=== PATIENT | female | born 1955 | race Caucasian/White ===

== ENCOUNTER 2023-02-04 16:11 | Outpatient (OUT) | payer OTHER, SELFPAY ==
--- NOTE | 2023-02-04 | XR_ITS ---
The [address] [address] Patient Name: MIRIAM HUBER MRN: [id number] date: 1955 Sex: F Assigned Patient Location: [facility] Current Patient Location: [facility] Accession/Order Number: [id number] Exam Date: 02/04/2023 16:35 Report Date: 02/04/2023 23:20 At the request of: TEENA CHILDS Procedure: XR ribs RT 2V EXAM: XR ribs RT 2V HISTORY: ro7.89 chest wall pain COMPARISON: None. TECHNIQUE: 6 view study FINDINGS: Overall bony architecture is normal. Multilevel thoracic spondylosis is noted, commensurate with age. XR/XR ribs RT 2V IMPRESSION: No acute right rib abnormality is identified. Electronically authenticated by: Laura DOW Date: 02/04/2023 23:20
== END 2023-02-04 16:12 | disposition home or self-care (01) ==
LOC: RAD 16:12
PROVIDERS: PCP Family Medicine; Visit Provider Family Medicine
DX: R07.89 Other chest pain (principal)
CPT/HCPCS: 71100

== ENCOUNTER 2024-06-15 12:50 | Outpatient (OUT) | payer MEDICARE, SELFPAY ==
--- NOTE | 2024-06-15 | XR_ITS ---
The [address] [address] Patient Name: MIRIAM HUBER MRN: [id number] date: 1955 Sex: F Assigned Patient Location: [facility] Current Patient Location: Accession/Order Number: [id number] Exam Date: 06/15/2024 13:00 Report Date: 06/17/2024 05:05 At the request of: TEENA CHILDS Procedure: XR cervical spine 5V EXAMINATION: XR cervical spine 5V HISTORY: Chronic Neck Pain COMPARISON: No relevant comparison available. FINDINGS: BONES: No fracture, spondylolisthesis, or bone lesion. Mild straightening of the normal lordotic curvature. Multilevel mild degenerative facet arthropathy. DISC SPACES: Mild narrowing C4-C5, C5-C6, C6-C7. PARASPINOUS: Negative. No paraspinous abnormality is seen. OTHER: Negative. XR/XR cervical spine 5V IMPRESSION: 1. Mild-moderate degenerative changes of cervical spine. Electronically authenticated by: FROYLAN SMITH Date: 06/17/2024 05:05
== END 2024-06-15 12:51 | disposition home or self-care (01) ==
LOC: RAD 12:54
PROVIDERS: PCP Family Medicine; Visit Provider Family Medicine
DX: M54.2 Cervicalgia (principal); G89.29 Other chronic pain
CPT/HCPCS: 72050

== ENCOUNTER 2024-08-30 14:54 | Outpatient (OUT) | payer MEDICARE, OTHER, SELFPAY ==
--- NOTE | 2024-08-30 14:57 | CA_ITS ---
Patient Name: MIRIAM HUBER MR#: [id number] : 1955 Exam Date: 08/30/2024 Ordering Doctor: DR. HARVEY LÓPEZ M.D. ECHOCARDIOGRAM REPORT PROCEDURE: CA ECHO DOPPLER COMPLETE INDICATIONS: Mitral valve regurgitation COMPARISON: None. DESCRIPTION: COMPLETE ECHOCARDIOGRAM Real-time transthoracic echocardiography with 2D, M-mode, spectral and color flow Doppler performed. QUALITY: Technical quality was good. LEFT VENTRICLE: Normal chamber size. Mild concentric left ventricular hypertrophy. Global left ventricular systolic function is normal. LV EF: Estimated left ventricular ejection fraction is 60-65 %. DIASTOLIC: Diastolic function is indeterminate. ATRIAL SEPTUM: LEFT ATRIUM: Mild dilatation. RIGHT ATRIUM: Normal chamber size. RIGHT VENTRICLE: Normal chamber size. Normal right ventricular systolic function. TRICUSPID VALVE: Normal mobility and thickness. No stenosis with mild regurgitation. No evidence of pulmonary hypertension. RVSP 32 mmHg MITRAL VALVE: Normal mobility and thickness. No evidence of mitral valve stenosis. There is no mitral annular calcification. Trivial mitral regurgitation. AORTIC VALVE: Normal trileaflet appearance. No visible sclerosis. Normal leaflet mobility. No evidence of aortic valve stenosis. No aortic regurgitation. AORTIC ROOT: Normal diameter and appearance. PULMONIC VALVE: Normal thickness and mobility. No stenosis. Trivial regurgitation. PERICARDIUM: No evidence of pericardial effusion. IVC: Collapses with inspirations. Normal size. PLEURA: CONCLUSION: 1. Mild concentric left ventricular hypertrophy with normal systolic function. Estimated LVEF is 60 to 65%. 2. Normal right ventricular size and systolic function. 3. Mild left atrial dilatation. 4. Mild tricuspid regurgitation. 5. Trivial mitral regurgitation. 6. Normal right-sided pressures. Adult Echocardiography Procedure Report Left Ventricle LVEDD (3.7 - 5.6 cm): 3.81 cm LVESD (2.2 - 4.0 cm): 2.60 cm LVIVS thickness (0.6 - 1.2 cm): 1.17 cm LVPW thickness (0.5 - 1.0 cm): 1.16 cm e': 0.08 m/s E - e': 8.68 LVOT Max Gradient: 4.66 mm[Hg] LVOT Area (cm2): 1.08 m/s Peak Velocity (LVOT): 1.08 m/s Mean Velocity (LVOT): 0.73 m/s LVOT Diameter 1.88 cm Left Atrium LA Volume Index (2D A2C): 26.07 ml/m2 Left Atrium Systolic Dimension: 4.87 cm Mitral Valve MV E to A Ratio: 0.82 Mitral Valve A-Wave Peak Velocity: 0.83 m/s Mitral Valve E-Wave Peak Velocity: 0.68 m/s Right Ventricle RV Internal Diastolic Dimension: 2.91 cm Aorta AO Root Diam: 2.90 cm Ascending Ao Diam: 3.10 cm Aortic Valve AoV Area (Peak Jaime): 2.26 cm2, 2.26 cm2 AoV Area (VTI): 2.31 cm2, 2.31 cm2 Peak Velocity(Antegrade Flow): 1.32 m/s Peak Gradient(Antegrade Flow): 7.01 mm[Hg] Mean Velocity(Antegrade Flow): 0.88 m/s Mean Gradient(Antegrade Flow): 3.61 mm[Hg] Velocity Time Integral: 31.15 cm Tricuspid Valve Peak Velocity (Regurgitant Flow): 2.42 m/s, 2.59 m/s, 2.69 m/s Pulmonic Valve Mean Gradient: 3.15 mm[Hg], 2.91 mm[Hg] Mean Velocity: 0.83 m/s, 0.80 m/s Peak Velocity: 1.16 m/s Peak Gradient: 5.42 mm[Hg], 5.42 mm[Hg] Right Atrium Right Atrium Systolic Pressure: 32.82 ml, 32.82 ml Dictated by: Lake Ross M.D. on 08/30/2024 at 17:52 Approved by: Lake Ross M.D. on 08/30/2024 at 17:55
== END 2024-08-30 14:55 | disposition home or self-care (01) ==
LOC: CARD 14:55
PROVIDERS: PCP Family Medicine; Visit Provider Internal Medicine Cardiovascular Disease
DX: I34.0 Nonrheumatic mitral (valve) insufficiency (principal)
CPT/HCPCS: 93306

== ENCOUNTER 2024-09-14 10:15 | Outpatient (OUT) | payer MEDICARE, OTHER, SELFPAY ==
--- OUTSIDE RECORDS SUMMARY | 2024-09-14 10:34 | XMS_ITS | CCD ---
Author Organization [facility] Care Team Providers Care Computer Builder Name Role Phone Ninfa Childs Primary Care Provider Ninfa Childs Attending Provider NINFA CHILDS Primary Care Physician MD Ninfa Childs Primary Care Provider [phone] MD Ninfa Childs Referring Provider Self, Referral Attending Provider Unavailable SALAM, Infante Attending Unavailable SALAM, Infante Referring Unavailable SALAM, Infante Admitting Unavailable SALAM, Naresh Attending Unavailable SALAM, Naresh Referring Unavailable SALAM, Infante Admitting Unavailable Kayli Miller Attending Unavailable SALAM, Infante Attending Unavailable SALAM, Infante Referring Unavailable SALAM, Infante Admitting Unavailable Ninfa Childs Unavailable REQUEST, NONE LISTED Attending Unavaila ble REQUEST, NONE LISTED Consulting Unavaila ble NAZ, DR NINFA Lugo Primary Care Unavailable REQUEST, NONE LISTED Admitting Unavaila ble NAZ, DR NINFA Lugo Primary Care Unavailable Marlon Aguilar Consulting Unavailable NAZ, DR NINFA Lugo Admitting Unavailable CHILDS, DR NINFA Lugo Attending Unavailable CHILDS, DR NINFA Lugo Consulting Unavailable CHILDS, DR NINFA Lugo Primary Care Unavailable ANGÉLICA SANEDRS Admitting Unavailable ANGÉLICA SANDERS Attending Unavailable ANGÉLICA SANDERS Consulting Unavailable MD Ninfa Childs Primary Care Provider MD Ninfa Childs Attending Provider [phone] Bharat Singleton Unavailable JAE BLANCAS Attending Unavailable NINFA CHILDS Referring Unavailable MARIE GONZALEZ Attending Unavailable MARIE GONZALEZ Referring Unavailable Ninfa Childs Primary Care Unavailable Self, Referral Attending Unavailable Self, Referral Admitting Unavailable MD Ninfa Childs Primary Care Provider Self, Referral Attending Provider Unavailable HARVEY LÓPEZ Attending Unavailable Unavailable Unavailable Unavailable Allergies Allergy Classification Reported Allergen(s) Allergy Type Date of Onset Reaction(s) Facility (7 sources) Topical Dispenser *MEDICAL DEVICES AND SUPPLIES* Propensity to adverse reactions 3 Unknown [facility] [facility] Other (7 sources) Allergies Reconciled Propensity to adverse reactions Unknown [employer] Other (7 sources) Ibuprofen & Diet Manage Prod *ANALGESICS - ANTI-IN Propensity to adverse reactions 3 Unknown [employer] Other (7 sources) patient allergy list reviewed by nurse or physicia Propensity to adverse reactions 3 Comment:Done [employer] Other (2 sources) Ibuprofen & Diet Manage Prod * Allergy to substance 4 [facility] Comment on above: Free Text Allergy: I buprofen & Diet Manage Prod *ANALGESICS - ANTI-IN; Onset Date: 05/16/2013 (2 sources) Topical Dispenser *MEDICAL DEV Allergy to substance 4 [facility] Comment on above: Free Text Allergy: T opical Dispenser *MEDICAL DEVICES AND SUPPLIES*; Onset Date: 05/16/2013 Medications Current Medications Medication Drug Class(es) Dates Sig (Normalized) Sig (Original) ascorbic acid 1000 mg oral tablet (5 sources) Vitamin C Start: 07-08-2015 take 1000 mg by mouth once daily Vitamin C 1,000 mg, Oral, Daily, Refills(s) 0, Prophylaxis Start Date: 07/08/15 Status: Ordered Aspir-81 81 MG (10 sources) take 1 tablet by mouth once daily Aspir-81 81 MG 1 tablet Orally Once a day Active aspirin 81 mg delayed release oral tablet (7 sources) Platelet Aggregation Inhibitor, Nonsteroidal Anti-inflammatory Drug Start: 10-12-2023 take 1 tablet by mouth once daily Aspirin 81 mg tablet,delayed release (DR/EC) Active 1 TAB PO Daily October 11, 2023 11:00pm [employer] tablet Orally Once a day; Note: Source Status: Taking; Provider: Naz Ocasio ( ) Start: 07-08-2015 take 81 mg by mouth once daily aspirin 81 mg, Oral, Daily, Refills(s) 0, Blood Thinner Start Date: 07/08/15 Status: Ordered azithromycin 250 mg oral tablet (2 sources) Macrolide Antimicrobial Start: 04-26-2023 Azithromycin 250 MG as directed Orally 2 tabs po today, then 1 tab daily x 4 more days for 5 Apr, Active Biotin (5 sources) Start: 07-08-2015 take 1000 ug by mouth once daily biotin 1,000 mcg, Oral, Daily, Refills(s) 0, Prophylaxis Start Date: 07/08/15 Status: Ordered Start: 07-08-2015 biotin See Ins tructions, Refills(s) 0, Prophylaxis Start Date: 07/08/15 Status: Ordered carvedilol 3.125 mg oral tablet (14 sources) alpha-Adrenergic Alyse, beta-Adrenergic Alyse Start: 10-12-2023 take 1 tablet by mouth twice daily at mealtime Carvedilol 3.125 mg tablet Active 1 TAB PO Twice daily October 11, 2023 11:00pm [employer] tablet with food Orally Twice a day; Note: Source Status: Taking; Provider: Naz Ocasio ( ) Start: 10-12-2023 take 1 tablet by mykel th twice daily at mealtime Carvedilol Active 1 TAB PO Twice daily October 12, 2023 12:00am [employer] tablet with food Orally Twice a day; Note: Source Status: Taking; Provider: Naz Ocasio ( ) Start: 06-10-2022 take 1 tablet by mykel th twice daily carvedilol 3.125 mg Tab 3.125 mg = 1 tab(s), Oral, BID, Refills(s) 0 Start Date: 06/10/22 Status: Ordered take 1 tablet by mykel th every twelve hours Coreg 3.125 MG 1 tablet with food Orally Twice a day Active cinnamon preparation 500 mg oral tablet (5 sources) Non-Standardized Food Allergenic Extract Start: 07-08-2015 take 500 mg by mouth twice daily Cinnamon 500 mg, Oral, BID, Refills(s) 0, Prophylaxis Start Date: 07/08/15 Status: Ordered clopidogrel 75 mg oral tablet (12 sources) P2Y12 Platelet Inhibitor Start: 07-08-2015 take 75 mg by mouth once daily Plavix 75 mg, Oral, Daily, Refills(s) 0, Blood Thinner Start Date: 07/08/15 Status: Ordered Co Q-10 (5 sources) Start: 07-08-2015 take 100 mg by mouth once daily Co Q-10 100 mg, Oral, Daily, Refills(s) 0, Prophylaxis Start Date: 07/08/15 Status: Ordered Start: 07-08-2015 Co Q-10 See In structions, Refills(s) 0, Prophylaxis Start Date: 07/08/15 Status: Ordered Co Q10 Maximum Strength (10 sources) Co Q10 Maximum Strength Active glucosamine 500 mg oral tablet (3 sources) Start: 5 take 500 mg by mouth once daily glucosamine 500 mg, Oral, Daily, Refills(s) 0, Prophylaxis Start Date: 07/08/15 Status: Ordered 24 hr isosorbide mononitrate 30 mg extended release oral tablet (3 sources) Nitrate Vasodilator Start: 5 take 30 mg by mouth once daily in the morning Imdur 30 mg, Oral, qAM, Refills(s) 0, Chest pain Start Date: 07/08/15 Status: Ordered lisinopril 5 mg oral tablet (14 sources) Angiotensin Converting Enzyme Inhibitor Start: take 1 tablet by mouth once daily Lisinopril 5 mg tablet Active 1 TAB PO Daily October 11, 2023 11:00pm [employer] tablet Orally Once a day; Note: Source Status: Taking; Provider: Naz Ocasio ( ) Start: 06-10-2022 lisinopril Ora l, Daily, Refills(s) 0 Start Date: 06/10/22 Status: Ordered take 1 tablet by mykel th every twenty-four hours Lisinopril 5 MG 1 tablet Orally Once a day Active loratadine 10 mg oral tablet (11 sources) Start: 10-12-2023 take 1 tablet by mouth once daily Loratadine 10 mg tablet Active 1 TAB PO Daily October 11, 2023 11:00pm FreeTextSig: TAKE 1 TABLET BY MOUTH EVERY DAY; Note: Source Status: Taking; Refills: 2; Qty: 90 Tablet; Provider: Naz Ocasio ( ) take 1 tablet by mouth once meng y Loratadine 10 MG TAKE 1 TABLET BY MOUTH EVERY DAY for 90 Active magnesium oxide 250 mg oral tablet (5 sources) Start: 07-08-2015 take 250 mg by mouth once daily magnesium oxide 250 mg, Oral, Daily, Refills(s) 0, Prophylaxis Start Date: 07/08/15 Status: Ordered meclizine hydrochloride 12.5 mg oral tablet (2 sources) Antiemetic take 1 tablet by mouth every twelve hours Meclizine HCl 12.5 MG 1 tablet as needed Orally every 12 hrs for 5 days Active Lopressor (3 sources) beta-Adrenergic Alyse Start: 07-08-2015 Lopressor Refills(s) 0, High blood pressure Start Date: 07/08/15 Status: Ordered nitroglycerin 0.4 mg sublingual powder (5 sources) Nitrate Vasodilator Start: 07-08-2015 Nitrostat 0.4 mg, SubLingual, PRN Chest pain, Refills(s) 0 Start Date: 07/08/15 Status: Ordered polyethylene glycol 3350 with electrolytes Oral Pwdr for Adrianne 4000 mL (NuLytely) (3 sources) Start: 10-23-2021 take 1 dose by mouth once polyethylene glycol 3350 with electrolytes Oral Pwdr for Adrianne 4000 mL (NuLytely) See Instructions, 1 EA, Refill(s) 0, PER PHYSICIAN INSTRUCTIONS. PRIOR TO COLONOSCOPY., [facility]/pharmacy #[id number], 175.2, cm, 10/23/21 10:55:00 EDT, Height/Length Dosing, 88.5, kg, 10/23/21 10:55:00 EDT, Weight Dosing Start Date: 10/23/21 Status: Ordered Probiotic Formula (5 sources) Start: 07-08-2015 take 1 capsule by mouth once daily Probiotic Formula 1 cap(s), Oral, Daily, Refill(s) 0, Prophylaxis Start Date: 07/08/15 Status: Ordered pseudoephedrine hydrochloride 30 mg oral tablet (5 sources) alpha-Adrenergic Agonist Start: 07-08-2015 take 30 mg by mouth every six hours as needed Sudafed 30 mg, Oral, q6hr, PRN Allergy symptoms, Refills(s) 0 Start Date: 07/08/15 Status: Ordered Start: 07-08-2015 Sudafed Refill s(s) 0 Start Date: 07/08/15 Status: Ordered raNITIdine 150 mg oral tablet (3 sources) Histamine-2 Receptor Antagonist Start: 07-08-2015 take 150 mg by mouth twice daily as needed ranitidine 150 mg, Oral, BID, PRN Control of stomach acid, Refills(s) 0 Start Date: 07/08/15 Status: Ordered simvastatin 40 mg oral tablet (5 sources) HMG-CoA Reductase Inhibitor Start: 07-08-2015 take 40 mg by mouth once daily at bedtime Zocor 40 mg, Oral, Once a day (at bedtime), Refills(s) 0, High cholesterol Start Date: 07/08/15 Status: Ordered traMADol hydrochloride 50 mg oral tablet (20 sources) Opioid Agonist Start: 11-08-2023 End: 08-16-2024 take 1 tablet by mouth three times daily as needed for pain Tramadol 50 mg tablet Active 50 MG PO Three times daily as needed for pain 80 August 16, 2024 12:45pm Start: 10-13-2023 End: 11-08-2023 take 1 tablet by mouth every eight hours as needed for pain Tramadol 50 mg tablet Discontinued 50 MG PO Every 8 hours as needed for pain 90 October 13, 2023 3:41pm November 08, 2023 3:12pm Start: 09-12-2023 End: 10-13-2023 take 1 tablet by mouth four times daily as needed for pain Tramadol 50 mg tablet Discontinued 50 MG PO Four times daily as needed for pain 90 September 12, 2023 10:07am October 13, 2023 3:47pm Start: 08-06-2023 take 1 tablet by mykel th four times daily as needed traMADol HCl 50 MG TAKE 1 TABLET BY MOUTH 4 TIMES DAILY NEEDED 22 for Jul, Active Start: 06-01-2023 take 1 tablet by mykel th four times daily as needed traMADol HCl 50 MG TAKE 1 TABLET BY MOUTH 4 TIMES DAILY NEEDED for May, Active Start: 04-26-2023 take 1 tablet by mykel th four times daily as needed traMADol HCl 50 MG TAKE 1 TABLET BY MOUTH 4 TIMES A DAY NEEDED for Apr, Active Start: 03-28-2023 take 1 tablet by mykel th four times daily as needed traMADol HCl 50 MG TAKE 1 TABLET BY MOUTH 4 TIMES A DAY NEEDED for Mar, Active Start: 03-01-2023 take 1 tablet by mykel th four times daily as needed traMADol HCl 50 MG TAKE 1 TABLET BY MOUTH 4 TIMES A DAY NEEDED for Feb, Active Start: 02-10-2023 traMADol HCl 5 0 MG TAKE 1 TABLET BY MOUTH 4 TIMES A DAY NEEDED Orally qid for 30 days Feb, Active Start: 01-05-2023 take 1 tablet by mykel th four times daily as needed traMADol HCl 50 MG TAKE 1 TABLET BY MOUTH 4 TIMES A DAY NEEDED for Dec, Active Start: 12-08-2022 take 1 tablet by mykel th four times daily as needed traMADol HCl 50 MG TAKE 1 TABLET BY MOUTH 4 TIMES A DAY NEEDED 22 for November, Active Start: 11-04-2022 take 1 tablet by mykel th four times daily as needed traMADol HCl 50 MG TAKE 1 TABLET BY MOUTH 4 TIMES A DAY NEEDED for Oct, Active Start: 07-08-2015 tramadol 50 mg , Oral, PRN as needed for pain, Refills(s) 0 Start Date: 07/08/15 Status: Ordered tretinoin 0.25 mg/ml topical cream (15 sources) Retinoid Start: 10-25-2023 End: 04-07-2024 Tretinoin 0.025 % cream Active 0 .ROUTE .COMPLEX April 07, 2024 6:37am APPLY TO AFFECTED AREA DAILY AT BEDTIME 30 Start: 10-25-2023 End: 10-25-2023 Tretinoin 0.025 % cream Disc ontinued 1 APPLIC TOPICAL Daily at bedtime October 24, 2023 11:00pm October 25, 2023 2:59pm Tretinoin 0.025 % APPLY TO AFFECTED AREA DAILY AT BEDTIME for 30 Active Tretinoin 0.025 % APPLY TO AFFECTED AREA EVERYDAY AT BEDTIME for 30 Active ubidecarenone 10 mg oral capsule (2 sources) Start: 10-12-2023 Coenzyme Q10 ( Co Q-10) 10 mg capsule Active 10 MG PO Three times daily October 11, 2023 11:00pm vitamin B12 (5 sources) Vitamin B12 Start: 07-08-2015 take 1000 ug by mouth once daily Vitamin B12 1,000 mcg, Oral, Daily, Refills(s) 0, Prophylaxis Start Date: 07/08/15 Status: Ordered Start: 07-08-2015 Vitamin B12 Se e Instructions, Refills(s) 0, Prophylaxis Start Date: 07/08/15 Status: Ordered Vitamin D3 (5 sources) Start: 07-08-2015 Vitamin D3 2,0 00 International_Unit, Oral, Daily, Refills(s) 0, Prophylaxis Start Date: 07/08/15 Status: Ordered Completed/Discontinued Medications Medication Drug Class(es) Dates Sig (Normalized) Sig (Original) amoxicillin 500 mg oral tablet (2 sources) Penicillin-class Antibacterial Start: 12-30-2023 End: 05-24-2024 take 1 tablet by mouth three times daily Amoxicillin 500 mg tablet Discontinued 500 MG PO Three times daily December 29, 2023 11:00pm May 24, 2024 2:50pm baclofen 10 mg oral tablet (9 sources) gamma-Aminobutyric Acid-ergic Agonist Start: 10-27-2014 take 1 tablet by mouth every eight hours at mealtime as needed for pain and muscle spasms Baclofen 10 MG 1 tablet with food or milk Orally every 8 hours as needed for back pain and muscle spasm, may cause fatigue, avoid driving/alcohol for 10 days Oct, Not-Taking/PRN doxepin 6 mg oral tablet (1 source) Tricyclic Antidepressant Start: 05-24-2024 End: 07-02-2024 take 1 tablet by mouth once daily at bedtime as needed for sleep Doxepin 6 mg tablet Discontinued 6 MG PO Daily at bedtime as needed for sleep May 24, 2024 12:00am July 02, 2024 8:58am predniSONE 20 mg oral tablet (9 sources) Start: 10-27-2014 take 1 tablet by mouth every twelve hours predniSONE 20 MG 1 tablet with food or milk Orally Twice a day for 7 days Oct, Not-Taking/PRN zolpidem tartrate 5 mg oral tablet (20 sources) gamma-Aminobutyric Acid-ergic Agonist Start: 09-14-2023 End: 05-24-2024 take 1 tablet by mouth once daily at bedtime as needed Zolpidem 5 mg tablet Discontinued 5 MG PO Daily at bedtime as needed for insomnia May 24, 2024 3:14pm May 24, 2024 3:16pm Start: 07-14-2023 Zolpidem Tartr ate 5 MG TAKE 1 TABLET BY MOUTH AT BEDTIME NEEDED FOR 90 DAYS for 30 Jul, Active Start: 02-18-2023 take 1 tablet by mykel th every twenty-four hours Ambien 5 MG 1 tablet at bedtime as needed Orally Once a day for 90 days Feb, Active Start: 10-22-2022 take 1 tablet by mykel th once daily at bedtime as needed for sleep Zolpidem Tartrate 10 MG TAKE 1 TABLET BY MOUTH EVERY DAY AT BEDTIME NEEDED FOR SLEEP for 15 Oct, Active Start: 07-08-2015 take 0.5 tablet by m outh once daily as needed Ambien 10 mg, Oral, Once a day (at bedtime), PRN Insomnia, take 1/2 tablet as needed, Refills(s) 0 Start Date: 07/08/15 Status: Ordered take 1 tablet by mykel th every twenty-four hours Ambien 5 MG 1 tablet at bedtime as needed Orally Once a day Active Problems Active Problems Problem Classification Problem Date Documented Date Episodic/Chronic Chronic obstructive pulmonary disease and bronchiectasis (1 source) Bronchitis, not specified as acute or chronic Episodic Coronary atherosclerosis and other heart disease (20 sources) Atherosclerotic heart disease of grayling coronary artery without angina pectoris; Translations: [Atherosclerosis of coronary artery without angina pectoris] Onset: 07-17-2014 Chronic Diseases of mouth; excluding dental (10 sources) Sialoadenitis; Translations: [Sialoadenitis, unspecified] Onset: 04-12-2014 01-11-2024 Episodic Disorders of lipid metabolism (11 sources) Mixed hyperlipidemia; Translations: [Hyperlipidemia] Onset: 11-18-2022 Chronic Esophageal disorders (8 sources) Esophageal reflux finding; Translations: [Esophageal reflux] Onset: 05-16-2013 Chronic Essential hypertension (19 sources) Essential hypertension; Translations: [Essential (primary) hypertension] Onset: 12-08-2017 Chronic Heart valve disorders (2 sources) Nonrheumatic mitral (valve) insufficiency; Translations: [Nonrheumatic mitral (valve) insufficiency] Onset: 08-14-2024 Chronic Hypertension with complications and secondary hypertension (3 sources) Hypertensive heart disease without heart failure; Translations: [HTN HEART DISEASE W/O HEART FAIL] Onset: 11-18-2022 Chronic Inflammation; infection of eye (except that caused by tuberculosis or sexually transmitteddisease) (8 sources) External hordeolum; Translations: [Hordeolum externum right upper eyelid] Episodic Malaise and fatigue (8 sources) Fatigue; Translations: [Other fatigue] Episodic Nonspecific chest pain (1 source) Other chest pain Episodic Nutritional deficiencies (8 sources) Vitamin D deficiency; Translations: [Vitamin D deficiency, unspecified] Onset: 12-01-2016 Chronic Osteoarthritis (8 sources) Osteoarthritis; Translations: [Unspecified osteoarthritis, unspecified site] Onset: 12-01-2016 Chronic Other and unspecified benign neoplasm (6 sources) History of polyp of colon; Translations: [Personal history of colonic polyps] Onset: 10-23-2021 Episodic Other connective tissue disease (5 sources) Pain in right leg; Translations: [PAIN IN RIGHT LEG] Onset: 05-07-2022 Episodic Other connective tissue disease (7 sources) Pain in right lower limb; Translations: [Pain in right leg] Episodic Other infections; including parasitic (8 sources) H/O: infectious disease; Translations: [Personal history of other infectious and parasitic diseases] Episodic Other lower respiratory disease (8 sources) Chronic cough; Translations: [Chronic cough] Episodic Other nutritional; endocrine; and metabolic disorders (16 sources) Body mass index 25-29 - overweight; Translations: [Body mass index (BMI) 28.0-28.9, adult] Onset: 03-07-2018 Episodic Other nutritional; endocrine; and metabolic disorders (8 sources) Overweight; Translations: [Overweight] Episodic Other screening for suspected conditions (not mental disorders or infectious disease) (1 source) Encounter for screening mammogram for malignant neoplasm of breast Episodic Other skin disorders (8 sources) Actinic keratosis; Translations: [Actinic keratosis] Episodic Pulmonary heart disease (2 sources) Pulmonary hypertension, unspecified; Translations: [Pulmonary hypertension, unspecified] Onset: 08-14-2024 Chronic Residual codes; unclassified (2 sources) Family history of malignant neoplasm of digestive organ; Translations: [Family history of malignant neoplasm of digestive organs] Onset: 10-23-2021 Episodic Residual codes; unclassified (5 sources) Family history of cancer of colon 10-23-2021 Episodic Residual codes; unclassified (1 source) Asymptomatic menopausal state Episodic Residual codes; unclassified (15 sources) Postmenopausal state; Translations: [Asymptomatic menopausal state] Onset: 12-01-2016 Episodic Residual codes; unclassified (1 source) Family history of diabetes mellitus; Translations: [Family history of diabetes mellitus] Episodic Residual codes; unclassified (7 sources) Family history of diabetes mellitus; Translations: [Family history of diabetes mellitus] Episodic Residual codes; unclassified (2 sources) Insomnia; Translations: [Insomnia, unspecified] 01-11-2024 Episodic Residual codes; unclassified (1 source) Insomnia, unspecified; Translations: [Insomnia, unspecified] 05-24-2024 Episodic Spondylosis; intervertebral disc disorders; other back problems (9 sources) Other cervical disc degeneration, unspecified cervical region; Translations: [Degeneration of cervical intervertebral disc] Onset: 11-23-2018 Chronic Spondylosis; intervertebral disc disorders; other back problems (13 sources) Low back pain; Translations: [Lumbago] Onset: 09-19-2014 09-12-2023 Episodic Unclassified (1 source) Asymptomatic postmenopausal status; Translations: [Asymptomatic postmenopausal status] Onset: 12-01-2016 Past or Other Problems Problem Classification Problem Date Documented Da te Episodic/Chronic Abdominal pain (8 sources) Epigastric pain; Translations: [Epigastric pain] Onset: 05-16-2013 Episodic Allergic reactions (8 sources) Contact dermatitis due to plants; Translations: [Unspecified contact dermatitis due to plants, except food] Onset: 03-07-2018 Episodic Genitourinary symptoms and ill-defined conditions (8 sources) Dysuria; Translations: [Dysuria] Onset: 04-12-2014 Episodic Other connective tissue disease (8 sources) Enthesopathy of hip region; Translations: [Enthesopathy of hip region] Onset: 06-09-2015 Episodic Other non-traumatic joint disorders (8 sources) Arthralgia of the lower leg; Translations: [Pain in unspecified knee] Onset: 10-03-2014 Episodic Other non-traumatic joint disorders (8 sources) Arthralgia of the ankle and/or foot; Translations: [Pain in joint, ankle and foot] Onset: 12-08-2017 Episodic Other upper respiratory infections (8 sources) Acute pharyngitis; Translations: [Acute pharyngitis, unspecified] Onset: 10-18-2013 Episodic Unclassified (1 source) Exposure to 2019 novel coronavirus; Translations: [Contact with and (suspected) exposure to COVID19] Unclassified (2 sources) Lumbar pain M54.50 Results Test Name Value Interpretation Reference Range Facility Office Visiton 08-14-2024 Follow-up visit [id number] Lisa Moore 1955 F Date Provider Department Center 08/14/2024 [id number]-OROOUEHARVEY LÓPEZ CARD [facility] Family History Problem Relation Age of Onset Diabetes Mother Coronary artery disease Mother Kidney disease Mother Coronary artery disease Father Diabetes Brother Other Brother Family Status - Relation Status Age at Mother Father Brother Level of Service:75826 AR OFFICE/OUTPATIENT ESTABLISHED MOD MDM 30 MIN Reason for Visit and Comments: Hypertension [205384] - She's only been taking lisinopril a few times a week because she forgets to take it at noon. Had echo and labs in November 2022. Hyperlipidemia [182] - Only takes simvastatin twice a week now. Coronary Artery Disease [187] - No recent labs/imaging. She denies chest pain, SOB, and palpitations. Normal [facility] MM screening mammo BI w/CADo n 04-11-2024 MM screening mammo BI w/CAD [place] [address] Mammography Report Signed Patient: Belia Moore MR#: [id number] : 1955 Acct:[id number] Age/Sex: 69 / F ADM Date: 04/11/24 Loc: MS Room: Type: [facility] Attending Dr: Referral Self Copies to: Ninfa Childs MD SELF,REFERRAL Ordering Provider: SELF,REFERRAL Date of Service: 04/11/24 MM/MM screening mammo BI w/CAD: SCREENING CLINICAL DATA: Screening for malignancy. BILATERAL SCREENING MAMMOGRAMS - FULL FIELD DIGITAL WITH TOMOSYNTHESIS AND CAD Tomosynthesis craniocaudal and mediolateral oblique views of both breasts were obtained using low- dose digital technique. Comparison is made to prior studies from 01/21/2023, 11/13/2021, and 10/03/2020. This examination was reviewed with the aid of CAD. The breast parenchyma has been largely replaced by fat. Benign-appearing lymph nodes are noted along the chest wall. There are similar focal asymmetries bilaterally. There are no dominant masses, typically malignant calcifications or architectural distortion. There has been no significant interval change. MM/MM screening mammo BI w/CAD IMPRESSION: NO MAMMOGRAPHIC EVIDENCE OF MALIGNANCY. ROUTINE FOLLOW-UP IS RECOMMENDED IN ONE YEAR. RESULT CODE: 2 Benign Findings(s) DENSITY CODE: 1 (<25% glandular) FOLLOW UP: 1YR The false-negative rate of mammography is approximately 10-percent. Management of a palpable abnormality must be based on clinical grounds. Patient was entered into a reminder system with a target due date for the next mammogram. Impression dictated by: Tejas Calvillo M.D.04/11/2024 3:30 PM Dictation Location: [facility] Transcribed By: SUSIE 04/11/24 1530 Dictated By: Tejas Calvillo II, MD 04/11/24 1526 Signed By: 04/11/24 1530 Normal [facility] CBC AUTO DIFFon 11-12-2022 BASO # 0.0 103/ul Normal 0.0-0.1 [facility] Comment on above: Performed By: #### D ATCBC #### [facility] [address] [place] [address] Dr. Lisa Balderas Basophils/100 WBC (Bld) 0.9 % Normal 0.2-2.0 [facility] Comment on above: Performed By: #### D ATCBC #### [facility] [address] [place] [address] Dr. Lisa Balderas EO # 0.1 103/ul Normal 0.0-0.7 [facility] Comment on above: Performed By: #### D ATCBC #### [facility] [address] [address] [address] Lisa Balderas Eosinophils/100 WBC (Bld) 2.8 % Normal 0.9-7.0 [facility] Comment on above: Performed By: #### D ATCBC #### [facility] [address] [place] [address] Dr. Lisa Balderas Erythrocyte distribution width (RBC) [Ratio] 12.8 % Normal 11.0-15.0 [facility] Comment on above: Performed By: #### D ATCBC #### [facility] [address] [address] [address] Lisa Balderas Hematocrit (Bld) [Volume fraction] 44.8 % Normal 36.0-48.0 [facility] Comment on above: Performed By: #### D ATCBC #### [facility] [address] [address] [address] Lisa Balderas Hemoglobin (Bld) [Mass/Vol] 14.2 g/dL Normal 12.0-16.0 [facility] Comment on above: Performed By: #### D ATCBC #### [facility] [address] [place] [address] Dr. Lisa Balderas IG # 0.00 10e3/ul Normal 0.00-0.03 [facility] Comment on above: Performed By: #### D ATCBC #### [facility] [address] [place] [address] Dr. Lisa Balderas IG % 0.0 % Normal 0.0-0.5 [facility] Comment on above: Performed By: #### D ATCBC #### [facility] [address] [place] [address] Dr. Lisa Balderas LYMPH # 1.5 103/ul Normal 1.2-3.8 [facility] Comment on above: Performed By: #### D ATCBC #### [facility] [address] [place] [address] Dr. Lisa Balderas Lymphocytes/100 WBC (Bld) 34.3 % Normal 20.5-60.0 [facility] Comment on above: Performed By: #### D ATCBC #### [facility] [address] [place] [address] Dr. Lisa Balderas MCH (RBC) [Entitic mass] 28.3 pg Normal 26.7-34.0 [facility] Comment on above: Performed By: #### D ATCBC #### [facility] [address] [place] [address] Dr. Lisa Balderas MCHC (RBC) [Mass/Vol] 31.7 g/dL Normal 29.9-35.2 [facility] Comment on above: Performed By: #### D ATCBC #### [facility] [address] [place] [address] Dr. Lisa Balderas MCV (RBC) [Entitic vol] 89.4 fL Normal 81.0-99.0 [facility] Comment on above: Performed By: #### D ATCBC #### [facility] [address] [place] [address] Dr. Lisa Balderas MONO # 0.3 103/ul Normal 0.3-0.8 [facility] Comment on above: Performed By: #### D ATCBC #### [facility] [address] [place] [address] Dr. Lisa Balderas Monocytes/100 WBC (Bld) 7.2 % Normal 1.7-12.0 [facility] Comment on above: Performed By: #### D ATCBC #### [facility] [address] [place] [address] Dr. Lisa Balderas NEUT # 2.4 103/ul Normal 1.4-6.5 [facility] Comment on above: Performed By: #### D ATCBC #### [facility] [address] [place] [address] Dr. Lisa Balderas Neutrophils/100 WBC (Bld) 54.8 % Normal 43.0-75.0 [facility] Comment on above: Performed By: #### D ATCBC #### [facility] [address] [place] [address] Dr. Lisa Balderas Platelet mean volume (Bld) [Entitic vol] 9.8 fL Normal 9.5-13.5 [facility] Comment on above: Performed By: #### D ATCBC #### [facility] [address] [place] [address] Dr. Lisa Balderas PLT 238 103/ul Normal 150-450 [facility] Comment on above: Performed By: #### D ATCBC #### [facility] [address] [place] [address] Dr. Lisa Balderas RBC 5.01 106/ul Normal 4.20-5.40 [facility] Comment on above: Performed By: #### D ATCBC #### [facility] [address] [address] [address] Lisa Balderas WBC 4.3 103/ul Normal 4.0-11.0 [facility] Comment on above: Performed By: #### D ATCBC #### [facility] [address] [place] [address] Dr. Lisa Balderas CRIS - TSHon 11-12-2022 TSH 2.534 uIU/mL Normal 0.358-3.740 [facility] Comment on above: Performed By: #### D ATTSH, DATBMP #### [facility] [address] [place] [address] Dr. Lisa Balderas TSH RANGE SEE BELOW Normal [facility] Comment on above: Result Comment: <0.3 4 UIU/ml HYPERTHYROID 0.34-5.60 UIU/ml EUTHYROID >5.60 UIU/ml HYPOTHYROID Performed By: #### D ATTSH, DATBMP #### [facility] [address] [place] [address] Dr. Lisa Balderas CRIS- BMP WITH LIPIDon 2022 Anion gap [Moles/Vol] 11.7 mmol/L Normal [facility] Comment on above: Performed By: #### D ATTSH, DATBMP #### [facility] [address] [place] [address] Dr. Lisa Balderas Calcium [Mass/Vol] 9.5 mg/dL Normal 8.5-10.1 [facility] Comment on above: Performed By: #### D ATTSH, DATBMP #### [facility] [address] [place] [address] Dr. Lisa Balderas Chloride [Moles/Vol] 105 mmol/L Normal 98-107 [facility] Comment on above: Performed By: #### D ATTSH, DATBMP #### [facility] [address] [place] [address] Dr. Lisa Balderas Cholesterol [Mass/Vol] 214 mg/dL Critically high <=200 [facility] Comment on above: Performed By: #### D ATTSH, DATBMP #### [facility] [address] [address] [address] Lisa Balderas Cholesterol in HDL [Mass/Vol] 69 mg/dL Critically high 40-60 [facility] Comment on above: Performed By: #### D ATTSH, DATBMP #### [facility] [address] [address] [address] Lisa Balderas Cholesterol in LDL [Mass/Vol] 119.0 mg/dL Normal [facility] Comment on above: Performed By: #### D ATTSH, DATBMP #### [facility] [address] [address] [address] Lisa Balderas CO2 [Moles/Vol] 30.8 mmol/L Normal 21.0-32.0 [facility] Comment on above: Performed By: #### D ATTSH, DATBMP #### [facility] [address] [address] [address] Lisa Balderas Creatinine [Mass/Vol] 0.82 mg/dL Normal 0.55-1.02 [facility] Comment on above: Performed By: #### D ATTSH, DATBMP #### [facility] [address] [address] [address] Lisa Balderas EGFR-AF CROATIAN >60 Normal >=60 [facility] Comment on above: Performed By: #### D ATTSH, DATBMP #### [facility] [address] [address] [address] Lisa Balderas EGFR-NON AF CROATIAN >60 Normal >=60 [facility] Comment on above: Performed By: #### D ATTSH, DATBMP #### [facility] [address] [address] [address] Lisa Balderas Glucose [Mass/Vol] 95 mg/dL Normal 74-106 [facility] Comment on above: Performed By: #### D ATTSH, DATBMP #### [facility] [address] [address] [address] Lisa Balderas HDL NORMAL > or = 60 mg/dl - LO W CARDIOVASCULAR RISK <40 mg/dl - HIGH CARDIOVASCULAR RISK Normal [facility] Comment on above: Performed By: #### D ATTSH, DATBMP #### [facility] [address] [address] [address] Lisa Balderas LDL CALC NORMAL SEE BELOW Normal [facility] Comment on above: Result Comment: <100 mg/dl OPTIMAL 100 - 129 mg/dl NEAR OR ABOVE OPTIMAL 130 - 159 mg/dl BORDERLINE HIGH 160 - 189 mg/dl HIGH >190 mg/dl VERY HIGH Performed By: #### D ATTSH, DATBMP #### [facility] [address] [address] [address] Lisa Balderas Potassium [Moles/Vol] 4.5 mmol/L Normal 3.5-5.1 [facility] Comment on above: Performed By: #### D ATTSH, DATBMP #### [facility] [address] [address] [address] Lisa Balderas Sodium [Moles/Vol] 143 mmol/L Normal 136-145 [facility] Comment on above: Performed By: #### D ATTSH, DATBMP #### [facility] [address] [address] [address] Lisa Balderas Triglyceride [Mass/Vol] 130 mg/dL Normal <=150 [facility] Comment on above: Performed By: #### D ATTSH, DATBMP #### [facility] [address] [address] [address] Lisa Balderas Urea nitrogen [Mass/Vol] 13.0 mg/dL Normal 7.0-18.0 [facility] Comment on above: Performed By: #### D ATTSH, DATBMP #### [facility] [address] [address] [address] Lisa Balderas Urea nitrogen/Creatinine [Mass ratio] 15.9 mg/mg Normal [facility] Comment on above: Performed By: #### D ATTSH, DATBMP #### [facility] [address] [address] [address] Lisa Balderas VLDL CALC 26.0 mg/dL Normal [facility] Comment on above: Performed By: #### D ATT, DATP #### [facility] [address] [address] [address] Lisa Balderas ECHOCARDIO M/2D COMPLETEon 0 11-12-2022 ECHOCARDIO M/2D COMPLETE Patient: BELIA MOORE Exam Date: 11/12/2022 : 1955 Gender:F Ordering : ANGÉLICA SANDERS [facility] Admission #: [id number] Family : Order #: [id number] CLICK HERE TO VIEW EXAM ECHOCARDIOGRAM REPORT PROCEDURE: CARDIO PULMONARY ECHOCARDIO M/2D COMP INDICATIONS: Coronary artery disease, hypertension, h/o myocardial infarction COMPARISON: None. DESCRIPTION: COMPLETE ECHOCARDIOGRAM Real-time transthoracic echocardiography with 2D, M-mode, spectral and color flow Doppler performed. QUALITY: Technical quality was good. LEFT VENTRICLE: Normal chamber size. Proximal septal hypertrophy (sigmoid septum). LV EF: Normal left ventricular ejection fraction, (>55%). DIASTOLIC: Normal diastolic function. ATRIAL SEPTUM: Visually appears intact. LEFT ATRIUM: Normal chamber size. RIGHT ATRIUM: Normal chamber size. RIGHT VENTRICLE: Normal chamber size. Normal right ventricular systolic function. TRICUSPID VALVE: Normal mobility and thickness. No stenosis with mild regurgitation. Doppler studies reveal mildly (35-45) elevated right sided pressures. RVSP 43 mmHg MITRAL VALVE: Normal mobility and thickness. No evidence of mitral valve stenosis. There is no mitral annular calcification. Mild mitral regurgitation. AORTIC VALVE: Normal trileaflet appearance. No visible sclerosis. Normal leaflet mobility. No evidence of aortic valve stenosis. No aortic regurgitation. AORTIC ROOT: Normal diameter and appearance. PULMONIC VALVE: Normal thickness and mobility. No stenosis. Trivial regurgitation. PERICARDIUM: No evidence of pericardial effusion. IVC: Collapses with inspirations. IVC is normal in size. CONCLUSION: Global left ventricular systolic function is normal; visually estimated ejection fraction is 55 to 60%. No significant wall motion abnormalities. Normal diastolic function. The right ventricle is normal in size and systolic function. Mild tricuspid regurgitation. Mildly elevated right-sided pressures. Mild mitral regurgitation. Adult Echocardiography Procedure Report Left Ventricle LVEDD (3.7 - 5.6 cm): 4.32 cm LVESD (2.2 - 4.0 cm): 3.21 cm LVIVS thickness (0.6 - 1.2 cm): 1.10 cm LVPW thickness (0.5 - 1.0 cm): 0.85 cm e': 0.10 m/s E - e': 7.86 LVOT Max Gradient: 3.39 mm[Hg] Peak Velocity (LVOT): 0.92 m/s Mean Velocity (LVOT): 0.67 m/s LVOT Diameter 1.98 cm I left Atrium LA Volume Index (2D A2C): 63.24 ml, 63.24 ml Left Atrium Systolic Dimension: 3.93 cm Mitral Valve MV E to A Ratio: 0.98 Mitral Valve A-Wave Peak Velocity: 0.83 m/s Mitral Valve E-Wave Peak Velocity: 0.81 m/s Right Ventricle Aorta AO Root Diam: 3.30 cm Ascending Ao Diam: 2.52 cm Aortic Valve AoV Area (Peak Jaime): 2.81 cm2, 2.81 cm2 AoV Area (VTI): 2.82 cm2, 2.82 cm2 Peak Velocity(Antegrade Flow): 1.00 m/s Peak Gradient(Antegrade Flow): 4.04 mm[Hg] Mean Velocity(Antegrade Flow): 0.73 m/s Mean Gradient(Antegrade Flow): 2.42 mm[Hg] Velocity Time Integral: 27.70 cm Tricuspid Valve Peak Velocity (Regurgitant Flow): 2.66 m/s, 2.67 m/s, 3.18 m/s, 2.93 m/s Peak Velocity: 0.38 m/s Pulmonic Valve Peak Velocity: 0.95 m/s, 1.00 m/s Peak Gradient: 3.59 mm[Hg], 4.01 mm[Hg] Right Atrium Right Atrium Systolic Pressure: 45.35 ml, 45.35 ml Dictated by: Alejandra Haq M.D. on 11/12/2022 at 12:58 Approved by: Alejandra Haq M.D. on 11/12/2022 at 13:01 Normal [facility] Patient Letter FTon 2021 Patient Letter [facility] June 23, 2022 [place] [id number] BELIA MOORE 1955 Below is a summary of the results of your recent colonoscopy. Your results have been sent to your primary care provider along with recommendations on when the procedure should be repeated. COLONOSCOPY WITH POLYP REMOVAL __X_ Normal - NO CANCER Based on your results we are recommending you repeat the procedure in 5 years due to family history of colon cancer. You will be placed in our reminder system and will receive a reminder letter prior to your next due date. [facility] [phone] Normal [facility] Reminderson 06-23-2022 Reminders - From: Aliza Good I To: LINDA - Reminders/Recalls; Sent: 06/23/2022 15:15:34 EST Show up: 05/11/2027 15:15:00 EDT Subject: Colonoscopy Recall Due Date/Time: 06/10/2027 15:15:00 EST Reminder/Recall Repeat colonoscopy in 5 year(s) due to hx of colon polyps (2026). Normal [facility] IntraOperative Documentson 1 08-17-2021 IntraOperative Documents [id number]:127 Normal [facility] Coding Summary.on 06-14-2022 Coding Summary. CD:[id number] G h0bWw+PGhlYWQ+KU0VNXE hC59xrTGwiV5AJ6cLFY9C NPSOPPUZTZ2MED7pxEV1H SxtR5EnvsCg KefyzTQmNW82ANn5AKU8g XmhAThcvT1oqAHvK9q0Bv MlHP57kP83TMxoRTBtRoU 3LjZpbjsgbWFy I9ryHeUxzYLvUpf+PHRhY mxlIHdpZHRoPScxMDAlJy OtlXowCB8aHi1nVPJcGNO vbGxhcHNlOiBj v2vpOCEnAEpoEA0ejNbbL 7UqiHA7NWGoa3i4Wj40yT I+NOKjWFE7eKwhIRyww83 5ZeJef7vcGTA7 cXDdJKzxBWW0D58nn1W9X OJuXCHlNBF0cKQ4iM7esA pcmzjeE0BvkIXeXvR9JTM 1sGZluJ1bsNga mkpmqV3kUaj+L41YHB8YF CZXPS7FRwn0M0JlKcwmtM I+CE19JBHqUX81dJXihZA kr4glcRp5OrDd TKYdGGF3mRlzDWmfl0HfZ KEuJ48ruJUbl4S3TQQduQ ynwNDvKdEnnIU8jD8bLVg tgfgyq2grunng Blpyl9zfyf15uA24U69zT DxtAVIqNKY0IFVfYZFrkB voju5gzW3aFo0+DVyck5n se1paxIg1TfSm KBPbjpWyhPbdSXH2i3JzT r38J7RomSekb5OgQtf3tg 69lNJme5C2nLG5LYovZGG vbM8pTEjfYpO6 VYZdSiTopS35qTQvFTsuJ n8puMccxGmfTF3qULAdcv woAPPfkT9cFCHakYWfeTt hXN6pCIVsblla t168VgSfZYL4WACgdKRmJ 2AnyB1pIwVgDGReIJDtJ7 EhhQPlBGqwE802MXrqZjZ 6IOBijhPcL2Hl PYPwvMypLaJ9z9B9Lk2Hx 4HkysoiSLV1FWzkZTLlMn O3TrBnVvR2L6BoEzf5SJQ tcNgyTC2xJ6Up UHNzdqkgdnxpjYZ4RRBwT HSwhH32yUOdYPbuGu6qs2 E1s819DICwYHGtiE36Lm4 udDogMTBwdCBU kB1jgnsuk0axtaycOsFkX KCiCFk3LQo2TRYzdTfbQu BvBVV4WzO0EOY2eKSijG1 rgWvwvsevtI9h Oyc+P03xeT5eQUG4EMU1e wioWIOjtaAqHH29DC70K3 RyPjwvdGFibGU+PGRpdiB oaUsuTQ2xYdVz q1tet6McUKhgA9FnLNFfA OqlGoh1KTMoAPF0bWJ0hJ 7gDIJbAYjlq2S4sYH2L4N belVlmc4ux4ke IBQaFAhxA71djNRqn5I6G NVakHP4EDNcyLbrYpVdsO 93Oyc+UYCjfFfrc8PgWmv na0jrn0mcfVv3 NuXuWYNyvhVyxGrmNFY1x 2XxBn14S59rTUafONUbAD FiTIRsVJUfkTkyad8jwP6 wIi8+PGNvbCB3 yRV0tF5eRSKqYeH0JStwR 701XvGusYJxSsypt0exo6 yosIm7TgBtEGYbsiItuAd zZHO3k0HuVn45 A51nBYbzHGPoGAOqUWJrZ PBmtOirck1zsO4aGs2+PC 4ez3pdmr72mU39rMP+PHR bXPK5aKcsPStj YIQmgV4aSJerKcO4STKvA uCadI92qTRrKPsmPl2ltQ bniDvkUA7lPLSxttrys92 8QgKdp9exPXYe nUEmIJldCRZ4L45sc6Y4V FNkGQSgJCT3tFK9rW7htK lnbjogbGVmdDsgdmVydGl eWFfaVQbrB217 IHRvcDsnPlBhdGllbnQgT jViBGd5U8YvZok2EOPduT loUD7sfGHfCYepLe7prVb gwKxsGZ5qEYRt gmxyk599LmOma3opTSWip QZjTLkoTOQ3C16zn3D8GA RuZHYoTDA3aRY6vX5nfRa nbjogbGVmdDsg koCjfZtoBYdpKUwcK602M HRvcDsnPkJpcnRoIERhdG P8YZ60PR92hODhj7G9nXK 6F5NoECAuzfhw pppgqOJ3BVQoZTKglA54N n3qvJnvNu6yMAUbDTX6WR XzhYYfL7TmfG9tGhRhJGQ uPLHzZ8VorWKy NUvzU486RItdWlL2OHOvm zRdW1VwEMAdzQlmQiY6r5 S3Aw8JZ6L6MJ37AS95yGB bb9E8rDQ6S5Ub TMPwqgynmtugpPO6GWOsC SSwnW04Mj3gcJoyGa7aYX GbFZQ3JZDsvFZzI8YntZ8 yOiAjMDAwMDAw D7OugQTlTQoeB366XPhgZ wH5SJMajkTpG5EpHZXofE vuLfT6w6M0Tb2SIJg9TR9 9FW13nLMkc6L4 aFJ5R3FvHKUjhcnbeppyu HM8BJOnFUDgvB47Oo8rjA wbKl0aGUAnDAD1DMSfuDX wX9BhsM0dKeFl IMPrDGLdG9CdhAJtJOwyR 502CJaeTcB2EPYkmdCeH7 HvNJAttXywFlM2e2X2Ar0 ULENeYL56SZQ8 pKP5HL03DA16N6UmMbcxh GFibGU+PHRhYmxlIHdpZH RoPScxMDAlJyBzdHlsZT0 uWl1nGNGrQVKd rYpqxXQaLjEbx1mhPLYoJ CfcMJ1xoPeiG1EiaIH9WO Yac9g4Ch28J25uY3IgbFZ +ONKriJP6kVM9 yO1nJkFcZnY4DDgsU734A sXfvFRcWlhvm9nwi5stjL r1SwS4GZPruaFhrYbjNCH 3a5InHz54Z52t IHdpZHRoPSIxNSUiIHZhb Qhjyx4tmR4jId3+PGNvbC N9lBY2kA0iVhOmNsQ6UNa lL476LwHemTRq Wuqpd7ipu2wzzLo2LzSxC FSfvhOttBtjWSY4q9MlFb 23E2ZbaZwjk0KjRno8qz6 2xJMty7A0jNX1 O9RnHTCanyudbDUdnPomP A1cFDYwqbyrCMAdrL9tOQ JfK1f0WrTnNfC7NXtlV9U fneM3TBPjmSBi EAciQNM7C42dl1D1RVNwS XQdQZJ0wVK4zO7khJktth ogbGVmdDsgdmVydGljYWw nQYrdL113GFBj vVqrVKNyeS3gXSNkmPBhw IhkGU1lNCVhsjaoBwkJQB xTJYyhC7gIQQz2E3AvHqy 6QEAsfVqpGD5n yIGgHAmuVc0anYkmcAkhW Y7pUXMxzomyRFFzxF8tIM FmmPTurQzvHY5tTZTmpna pv230KwCmNTH4 CWJshCHgM3TktN6jCnBcO TEkDHJtB4WuzVXgRHbmL9 03DRjtZlQ8RAOoayNjY9S sLWFsaWduOiB0 w5K4Wn8xBB0mLM8yXYY3Q A29IF06hWPna0L4rEC9S6 DpCFNftbknyejmoEB8RHX pMZGmdW02eKNu BWtlTd6jw6L1k148VGSzF TJfxN62Qh7ptBauPDOmcT EMsX7gteunh6kxsbjlLcK gNKDhSEg9TZh6 ZQPmsXeqDkOtMJA1RmF4K BC0vXUsgT0yqAwhbpuvqE 9wOyc+PnCpJEMwrnL4K7H wSzw0FORcrKxd JY7eqMFoNQokCk1wzSjzf DnzPB0aWINpndzqNSYkwK 9kECHslVUakSydFK0lWHI mvfpmk945GzQa PKE6QDPnkWUeI8UoqG2mG lEtKFPgKMLtT1EbvFMzBJ opO108SHfhWnI1NPGcjjQ gS5HsQBUybGaw FuI2s8L1Na7RGC6cwIU3R 6GmFqx3YMSvcGplRB0faS EjUFduNc6vbNrzfVsaDA7 wNTBpbjtwYWRk sM0vVPWywJThpVerIA2lV VGvronvk687TnZdTGJ3AX JpgQCbM4XsgY4kSgMxAJS cIIQoO6VmwFBs IWngG199EMoaXiY7KEYpi yVwU6VtFTIgaYcwAlH5y4 M4Fo4PpQRqHXEwHG19FS2 6SV02Y4DsGbvp dGFibGU+PHRhYmxlIHdpZ HRoPScxMDAlJyBzdHlsZT 1lIw8iTZHlDFZnkVbhbIV xYrBdp7flPFXt VHxqLL2shLypT0YgyRC0O GHjz6k3Cp05L08sC1IomK A+LCUjcFH3nPY8xP0bWxB tWuE0IRctB143 FsUdmITyMcpma1mrw9qmy Fd1LrMpXFYypkAhzUxvEM P5v8CnLh57P70yICubZXE oPSIyMCUiIHZh iAspwr2rsN7zGx4+PGNvb JF8vIR1gC5lHrMzKuM9TH cwK533FrNngDJcHjbrQ99 tE0IxfNA+PHRy Tkc9KVOigGjuNT7olUWxS RzaPn2wXDJ1ZjUsEjShRT upU4JeVZBcqokdipgpmGK 3FXKkLENgrK97 Yu9vfSduMw1eHUXxUET1Z GXjhOVgQ9TopZ9vTmIwVK FjLNDvA5QmoJYmSZwwN04 6NDcsRyQ9GBXo exDzF9VqIROvjLtkKyB8b 8I2Fy8PjQukeBXgRQ9iEs CoTHn5Q9KnGjo8PZMadKt jSO3flJUtMVdm Uv5kmQkioZtxYW4gFPJpw zcwv390LoDgn4guBIJonL BsQMrjSYP2Z74gh4N2CPA tJUEsIZX2vTN2 sP6tgQsfblzryQMlfOhlf jJbvJrpRRwwXTotY551BJ YukJqxTvEJIol3W9IdAnv 6DPJqzHzlMC4r dBIwUZzrKc3gnCdaxHrqD J8jNUZaqcbop257DcTfs2 xgQLJwpZPnMRnzURW5O85 rd6G7DFBfHUTg PBV2hZR6fQ6ehBwtgdhds GVmdDsgdmVydGljYWwtYW suM172GHDlnZjuRd7ANic 7S3IeAtz8LVWh tFzdNZ9qyXQaHYufZc1op UsrgKdjDS9xJSHbypirt6 15VgBey6qmGTNiyOXkTAb pVYD6O72ui7Y6 NDXjDVNeBRR6pNC5wH3bo GlnbjogbGVmdDsgdmVydG ysTBkcEKxkM969IGZbcBi nPlBheWVyOjwv dGQ+SR90xq45F2UuNfomE wk6TEMdLBU9kOM0cF4rKM VcCOget2A9sHQ2G7XmooE hhh0qk5ybGELn ZTog (more content not included)... Normal [facility] Main OR Intraoperative Recor don 06-14-2022 Main OR Intraoperative Record IntraOp Document Type FT Summary Primary Physician: Naresh HAYNES MD Finalized Date/Time: 06/14/22 11:52:19 Pt. Name: BELIA MOORE/Sex: 1955 Female Med Rec #: [id number] Physician: Naresh HAYNES MD Financial #: [id number] Pt. Type: O Room/Bed: / Admit/Disch: 06/10/22 07:41:40 - 06/10/22 23:59:59 Institution: Case Times FT Entry 1 Patient Times In Room 06/10/22 09:26:00 Out Room 06/10/22 09:45:00 Procedure Times Start 06/10/22 09:29:00 Stop 06/10/22 09:43:00 Anesthesia Times Start 06/10/22 09:26:00 Stop 06/10/22 09:45:00 Time at [facility] 06/10/22 09:37:00 Last Modified By: Yumiko Quinn RN 06/10/22 09:45:16 General Comments: 06/14/22 Chart opened to review and send charges [facility]oth CSFA Case Attendance FT Entry 1 Entry 2 Entry 3 Case Attendee Balaji Zarco Jr., DO, RN, Justin Camacho Role Performed Anesthesiologist of Component Assembler Supervisor - Primary Scrub - Primary Record Time In 06/10/22 09:26:00 06/10/22 09:26:00 06/10/22 09:26:00 Time Out 06/10/22 09:45:00 06/10/22 09:45:00 06/10/22 09:45:00 Procedure COLONOSCOPY(.) COLONOSCOPY(.) COLONOSCOPY(.) Comments Last Modified By: Cheyenne DYER, Yumiko Quinn RN, Yumiko Perez RN 06/10/22 09:45:17 F 06/10/22 09:45:17 F 06/10/22 09:45:17 Entry 4 Case Attendee Naresh HAYNES MD Role Performed Surgeon - Primary Time In 06/10/22 09:26:00 Time Out 06/10/22 09:45:00 Procedure COLONOSCOPY(.) Comments Last Modified By: Yumiko Quinn RN 06/10/22 09:45:17 Perioperative Protocols FT Pre-Care Text: Implements protective measures prior to operative or invasive procedure, confirms identity before the operative or invasive procedure, verifies operative procedure, surgical site, and laterality Entry 1 Procedure(s) COLONOSCOPY(.) Patient Identity Birthday, ID Band Verified (select at Check, Patient least 2): Participation Consents / H and P Anesthesia Consent, Operative Site N/A Verified HandP, Surgery/Procedure Marking Verified Consent Surgical Site No Laterality Verified n/a Verified Procedure Verified Yes Correct Patient Yes Position Verified Availability Equipment, Medication Prep Dry n/a Verified (If Applicable) PreOp Antibiotic No Time Out Balaji Zarco Jr., DO, Yumiko Quinn RN, Sparks, Micala E, Naresh HAYNES MD Time Out Complete 06/10/22 09:28:00 Outcomes Met? Yes Last Modified By: Yumiko Quinn RN 06/10/22 09:30:15 Post-Care Text: The patient is free from signs and symptoms of injury caused by extraneous objects Allergy Information FT Pre-Care Text: Verifies allergies Entry 1 Allergies Reviewed? Yes Allergies Reviewed Self/Patient With Outcomes Met? Yes Last Modified By: Yumiko Quinn RN 06/10/22 09:30:35 Post-Care Text: The patient received appropriate medication(s) safely administered during the perioperative period Surgical Procedures FT Entry 1 Procedure Description Procedure COLONOSCOPY Modifiers . Surgeon Description Colonoscopy with sigmoid colon polypectomy Primary Procedure Yes Primary Surgeon Naresh HAYNES MD Start 06/10/22 09:29:00 Stop 06/10/22 09:43:00 Anesthesia Type General Surgical Service Gastroenterology Wound Class 2 - Clean-Contaminated Last Modified By: Yumiko Quinn RN 06/10/22 09:43:38 General Case Data FT Pre-Care Text: Classifies surgical wound, implements aseptic technique, initiates traffic control Entry 1 Case Information OR ENDO 1 FT Case Level Level 2 Wound Class 2 - Clean-Contaminated Specialty Gastroenterology ASA Class 3 Preop Diagnosis History of colon Postop Same As Preop No polyps, family history of colon cancer Postop Diagnosis Diverticulosis, Outcomes Met? Yes external hemorrhoids, sigmoid colon polyp, internal hemorrhoids Last Modified By: Yumiko Quinn RN 06/10/22 09:44:05 Post-Care Text: The patient is free from signs and symptoms of infection Skin Assessment (Pre Procedure) FT Pre-Care Text: Implements protective measures to prevent skin/ tissue injury due to thermal or mechanical sources Evaluates for signs and symptoms of physical injury to skin and tissue Entry 1 Skin Integrity Intact, [place], Warm, and Skin Abnormality No Dry Outcomes Met? Yes Last Modified By: Yumiko Quinn RN 06/10/22 09:32:34 Post-Care Text: The patient is free from signs and symptoms of injury caused by extraneous objects Patient Positioning FT Pre-Care Text: Identifies physical alterations that require additional precautions for procedure-specific positioning, verifies presence of prosthetics or corrective devices, positions the patient, evaluates the patient for signs and symptoms of injury as a result of positioning Entry 1 Procedure COLONOSCOPY(.) Body Position Lateral, right side up Feet Uncrossed? Yes Left Arm Position Resting at Side Righ (more content not included)... Normal [facility] Consenton 06-11-2022 Consent [id number]# 1.00CD:127 [facility] Discharge Instructionson Discharge Instructions [id number]# 1.00CD:127 [facility] IntraOperative Documentson 1 08-12-2021 IntraOperative Documents [id number]# 1.00CD:127 [facility] Postoperative Documentson Postoperative Documents [id number]#1 .00CD:127 [facility] Consent for Treatmenton -0 Consent for Treatment [id number]#1 .00CD:127 [facility] Endoscopic Procedure Report - Otheron 06-10-2022 Endoscopic Procedure Report - Other Patient: BELIA MOORE Age: 67 years Sex: Female : 1955 Associated Diagnoses: None Author: Naresh HAYNES MD Pre-Procedure Procedure Date 06/10/2022 09:44:00 . Procedure Type: Colonoscopy with removal of tumor(s), polyp(s), or other lesion(s) by cold snare technique. Procedure provider Performed by Naresh Haynes MD. Current history and physical Documented on chart. Colorectal neoplasm risk assessment Average risk. Informed Consent After discussing the rationale, risks and benefits, and alternatives to this procedure, the patient provided signed consent for the procedure. Pre-procedure diagnosis: Age 50 years or over. Family history of colon cancer. Medications Anticoagulant/antipla telet None. ASA Classification: Class II. . Procedure The procedure was performed in the hospital. Rectal exam was performed and was normal with no masses palpated. The patient was positioned in the left lateral decubitus position and a digital rectal exam was performed.. Endoscope type used was an adult-size. The endoscope was lubricated then introduced through the anus. The scope was advanced to the cecum verified by photographing the appendiceal orifice, verified by photographing the ileocecal valve, verified by transillumination, The time to the cecum was 8 minutes, The withdrawal time was 6 minutes. No difficulties encountered during the procedure. The bowel preparation quality was adequate (see polyps greater than or equal to 6 millimeters). The patient tolerated the procedure well. Findings 1. Sessile polyp, 5 mm, likely inflammatory arising from the edge of sigmoid diverticulum, removed completely with cold snare 2. Severe diverticulosis in the sigmoid and descending colon 3. Moderate nonbleeding internal hemorrhoids Images Procedure images: Rec1_hd_video_2021_ _[id number].jpg Rec1_hd_video_ _[id number].jpg Rec1_hd_video_2021_ _[id number].jpg Rec1_hd_video_ _[id number].jpg . Post-Procedure Complications: none. Estimated blood loss: none. Specimens: sent to pathology. Devices/ implants: none left in place. Impression and Plan 1. Sessile polyp, 5 mm, likely inflammatory arising from the edge of sigmoid diverticulum, removed completely with cold snare 2. Severe diverticulosis in the sigmoid and descending colon 3. Moderate nonbleeding internal hemorrhoids Recommendations: Repeat colonoscopy:: In 5 years, Pending pathology results. Follow-up:: Clinic follow-up in 1-2 weeks. Diet:: Resume previous diet. Medication resumption:: Continue current medications. Return to activities:: After 24 hours. Normal [facility] Comment on above: Result Comment: Elec tronically Signed By: RAMSEY BALEDRRAMA, Naresh\.br\Date and Time Signed: 06/10/22 09:46 EST Other Comment: Carlene murrell Attachment - attachment storage system not supported [id number] Can be viewed in source system Missing Attachment - attachment storage system not supported [id number] Can be viewed in source system Missing Attachment - attachment storage system not supported [id number] Can be viewed in source system Missing Attachment - attachment storage system not supported [id number] Can be viewed in source system Main OR PACU I Recordon 12-0 Main OR PACU I Record PACU Phase I Docum ent Type FT Summary Primary Physician: Naresh HAYNES MD Finalized Date/Time: 06/10/22 10:19:47 Pt. Name: BELIA MOORE/Sex: 1955 Female Med Rec #: [id number] Physician: Naresh HAYNES MD Financial #: [id number] Pt. Type: O Room/Bed: / Admit/Disch: 06/10/22 07:41:40 - Institution: Case Times PACU I FT Pre-Care Text: Identifies barriers to communication and implements measures to provide psychological support Develops individualized plan of care, and ensures continuity of care Maintains patient's dignity and privacy, and maintains patient confidentiality Identifies and reports philosophical, cultural, and spiritual beliefs and values Identifies individual values and wishes concerning care Implements aseptic technique, and administers prescribed antibiotic therapy and immunizing agents as ordered Evaluates postoperative tissue perfusion Implements thermoregulation measures, and monitors body temperature Evaluates postoperative respiratory status Evaluates postoperative cardiac status Evaluates postoperative neurological status Assesses pain control, collaborated in initiating patient-controlled analgesia and implements alternative methods of pain control Verifies allergies, administers prescribed medications and solutions, evaluates response to medications Entry 1 In PACU I 06/10/22 09:46:00 Discharge from PACU 06/10/22 10:16:00 I Outcomes Met? Yes Last Modified By: JANINE DYER, KENTRELL De La O 06/10/22 10:19:35 Post-Care Text: The patient demonstrates knowledge of the expected response to the operative or invasive procedure The patient's care is consistent with the individualized perioperative plan of care The patient's right to privacy is maintained The patient's value system, lifestyle, ethnicity, and culture are considered, respected, and incorporated into the perioperative plan of care The patient participates in decisions affecting his or her perioperative plan of care The patient is free from signs and symptoms of infection The patient has wound/tissue perfusion consistent with or improved from baseline levels established preoperatively The patient is at or returning to normothermia at the conclusion of the immediate postoperative period The patient's respiratory function is consistent with or improved from baseline levels established preoperatively The patient's cardiovascular status is consistent with or improved from baseline levels established preoperatively The patient's cardiovascular status is consistent with or improved from baseline levels established preoperatively The patient demonstrates and/or reports adequate pain control throughout the perioperative period The patient received appropriate medication(s), safely administered during the perioperative period Acuity Level PACU I FT Entry 1 Start Time 06/10/22 09:46:00 Stop Time 06/10/22 10:16:00 Acuity Level Acuity Level I Last Modified By: KENTRELL MEHTA RN 06/10/22 10:19:44 Finalized By: KENTRELL MEHTA RN Document Signatures Signed By: KENTRELL MEHTA RN 06/10/22 10:19 Normal [facility] Monitor Recordon 06-10-2022 Monitor Record [id number]# 1.00CD:127 Normal [facility] Monitor Record [id number]# 1.00CD:127 Normal [facility] Progress Note-Physicianon Progress Note-Physician Patient: BELIA MOORE Age: 67 years Sex: Female : 1955 Associated Diagnoses: None Author: Balaji Zarco Jr., DO Postoperative Information Post Operative Note: Post Anesthesia Care Unit. Anesthetic utilized: General. Health Status Allergies: Allergic Reactions (Selected) No Known Allergies Problem list: All Problems Family history of colon cancer / SNOMED CT 701102456 / Confirmed History of colon polyps / SNOMED CT 3319236183 / Confirmed Physical Examination Vital Signs 06/10/2022 10:11 EST Heart Rate Monitored 65 bpm Respiratory Rate Monitored 26 br/min Systolic Blood Pressure 133 mmHg Diastolic Blood Pressure 74 mmHg SpO2 99 % 06/10/2022 10:00 EST Heart Rate Monitored 71 bpm Respiratory Rate Monitored 17 br/min Systolic Blood Pressure 126 mmHg Diastolic Blood Pressure 57 mmHg LOW SpO2 98 % 06/10/2022 9:55 EST Heart Rate Monitored 70 bpm Respiratory Rate Monitored 15 br/min Systolic Blood Pressure 143 mmHg HI Diastolic Blood Pressure 75 mmHg SpO2 98 % 06/10/2022 9:50 EST Heart Rate Monitored 77 bpm Respiratory Rate Monitored 12 br/min Systolic Blood Pressure 146 mmHg HI Diastolic Blood Pressure 71 mmHg SpO2 98 % 06/10/2022 9:46 EST Temperature Temporal Artery 36.4 DegC Heart Rate Monitored 77 bpm Respiratory Rate Monitored 17 br/min Systolic Blood Pressure 153 mmHg HI Diastolic Blood Pressure 76 mmHg SpO2 99 % Pain assessment: Controlled. General: Alert and oriented, No acute distress, No nausea. Adequate hydration.. Respiratory: Adequate air exchange.. Cardiovascular: stable. Neurologic: Normal sensory. Review / Management Condition: Stable. Assessment Anesthetic outcome No anesthetic complications noted. Plan Transfer/ Discharge: Condition stable. Normal [facility] Comment on above: Result Comment: Elec tronically Signed By: Balaji Zarco Jr., DO\.br\Date and Time Signed: 06/10/22 11:57 EST Progress Note-Physician Patient: BELIA MOORE Age: 67 years Sex: Female : 1955 Associated Diagnoses: None Author: Balaji Zarco Jr., DO Preoperative Information Anesthesia history: Patient History: No prior problems.. Re-eval prior to induction: Inital eval reviewed: No significant interval change. Anesthesia results Review of Systems Constitutional: Negative except as documented in history of present illness. Cardiovascular: Negative except as documented in history of present illness. Respiratory: Negative. Health Status Allergies: Allergic Reactions (Selected) No Known Allergies, Allergies (1) Active Reaction No Known Allergies None Documented Current medications: (Selected) Inpatient Medications Ordered Lactated Ringers IV Adrianne 1000 mL 1,000 mL: 1,000 mL, IV, 100 mL/hr, Routine, Start date 06/10/22 8:08:00 EST, 10 hour(s), Total volume (mL): 1,000 Sodium Chloride 0.9% IV Adrianne 1000 mL 1,000 mL: 1,000 mL, IV, 20 mL/hr, Routine, Start date 06/10/22 6:49:00 EST, 50 hour(s), Total volume (mL): 1,000 Prescriptions Prescribed polyethylene glycol 3350 with electrolytes Oral Pwdr for Adrianne 4000 mL (NuLytely): See Instructions, 1 EA, Refill(s) 0, PER PHYSICIAN INSTRUCTIONS. PRIOR TO COLONOSCOPY., [facility]/pharmacy #[id number], 175.2, cm, 10/23/21 10:55:00 EDT, Height/Length Dosing, 88.5, kg, 10/23/21 10:55:00 EDT, Weight Dosing Documented Medications Documented Ambien: 10 mg, Oral, Once a day (at bedtime), PRN Insomnia, take 1/2 tablet as needed, Refills(s) 0 Cinnamon: 500 mg, Oral, BID, Refills(s) 0, Prophylaxis Co Q-10: 100 mg, Oral, Daily, Refills(s) 0, Prophylaxis Imdur: 30 mg, Oral, qAM, Refills(s) 0, Chest pain Lopressor: Refills(s) 0, High blood pressure Nitrostat: 0.4 mg, SubLingual, PRN Chest pain, Refills(s) 0 Plavix: 75 mg, Oral, Daily, Refills(s) 0, Blood Thinner Probiotic Formula: 1 cap(s), Oral, Daily, Refill(s) 0, Prophylaxis Sudafed: 30 mg, Oral, q6hr, PRN Allergy symptoms, Refills(s) 0 Vitamin B12: 1,000 mcg, Oral, Daily, Refills(s) 0, Prophylaxis Vitamin C: 1,000 mg, Oral, Daily, Refills(s) 0, Prophylaxis Vitamin D3: 2,000 International_Unit, Oral, Daily, Refills(s) 0, Prophylaxis Zocor: 40 mg, Oral, Once a day (at bedtime), Refills(s) 0, High cholesterol aspirin: 81 mg, Oral, Daily, Refills(s) 0, Blood Thinner biotin: 1,000 mcg, Oral, Daily, Refills(s) 0, Prophylaxis glucosamine: 500 mg, Oral, Daily, Refills(s) 0, Prophylaxis magnesium oxide: 250 mg, Oral, Daily, Refills(s) 0, Prophylaxis ranitidine: 150 mg, Oral, BID, PRN Control of stomach acid, Refills(s) 0 tramadol: 50 mg, Oral, PRN as needed for pain, Refills(s) 0 Histories Past Medical History: No active or resolved past medical history items have been selected or recorded. Family History: Diabetes mellitus type 2 Mother Diverticulitis of colon Mother Cardiac arrest Father Procedure history: Colonoscopy ([id number]) on 07/09/2015 at 60 Years. Social History Social & Psychosocial Habits Tobacco 10/23/2021 Tobacco Use: Never (less than 100 in l Smokeless tobacco use: Never . Physical Examination Respiratory: Lungs are clear to auscultation. Cardiovascular: Regular rhythm. Plan [place] [employer] (ASA) physical status classification: Class III. Anesthetic Preoperative Plan Anesthesia: General. . Anesthetic plan, risks, benefits, and alternatives discussed with the patient and/or family. Patient verbalized understanding. [facility] Comment on above: Result Comment: Elec tronically Signed By: Balaji Zarco Jr., DO\.ida\Date and Time Signed: 06/10/22 08:09 EST Coding Summary.on 06-07-2022 Coding Summary. CD:[id number] G h0bWw+PGhlYWQ+GT4AYZO sV44oiFWjpW1MH9rROZ4E NYKQBCOMQR0XUI8emKG1A KrxR6UylsKi IhaaqEHjNV99RFy8QKJ8m VluFAzeqB5oxIIuN6v3Lf OkBR15oJ43PNzaQUGaNvE 3LjZpbjsgbWFy B6zkDqHhtJAvUmp+PHRhY mxlIHdpZHRoPScxMDAlJy WmrQlnGD1pKb1pXSAyCGK vbGxhcHNlOiBj k0nhIQDuJJknBA9hxBbpB 3QvzCK8XADhm6a0Vo29wT I+XKAiAOP6nGtlRIqgi50 0MkUjt0mzHVV3 mIHcDLxpVEQ8K87el8T0P KJaTJPeYHS9fSX5gE8ibM sbovvmO3QywRTrLzT5DAR 3aTJaxC1sqRvc ltnseM3pVud+L01XHR6MF ONVFT6QWal7X1VfBsmryD I+VZ52DEOaOY16yBBryLR el8tjoEb0WyDi EEMjEFP0dIecJXvan4UoQ DDcF99gdYJrx3T7ZKZezF gezAVnWcOpcAH0mT7sYGg hiocme5pqklxh Rwwnx0tahx31xU12V82jP KviQZEqMDP4SAIzRHTfsT qyua0iyE0qOf7+ZNfzd7t ti7zbnNq9QzTd GXQidlMekPpmXVX4v7BsG b81W8FtrQkhv3FlTfk0xi 07lWOcf3H2lQJ6TEzhBRL cmL4cQBvgZcF3 IHRqBtZjvO17nVKnDBauT j1jjEodqDibDS9gIPHrfx jfXANxlM6nTGAloLCeaCh fGQ7uQIBlzlmh b304MrYtISA6BCGsiASsW 2WigY9sMkOiYFWgYGVxS2 UepMVdYTnrA673FUrgRdD 1HFZdkvUcP7Hi RNFgbKlhDsY5y0J0Dn8Md 2UovcovEHK7CRioRYPbQr E6SpQpQeO0S6NzMje1ZVB byCbsZV3zZ4Ut NYJwkjdfmjusyZQ9UXCiL GMotP02jADmKZmpHk9qh2 M2d793GWLlGFQxqZ90Au8 udDogMTBwdCBU xQ1qqwqqt9mmpprdGgUnQ IBkZNu8TFq0JYLlyDhqVn DvKBA0UlA2TVF1yUBeaF3 swEskqquyrA4d Oyc+X50glG3nYQQ7XLQ7s xymOBBmjoRhQN18WC92P5 RyPjwvdGFibGU+PGRpdiB gjNsxTE7tMhDl k0aiu5YcZZbeC2JfYQNwL ZrsRrt6ANMaXRG7dKR2wZ 5mXDGbDBwoa7T9eEG8I3K jfqZteo7dy3de HQPjRRgiZ97swZLor9L0D CQqfXN0PKYejGjzLaNeaF 93Oyc+AQUmgXicn3KbKcp ps6vvr0sdvWc9 ZlCkDUHyuoWbgAsyXAJ0c 0IgEf26A05cTHmqGVHsOX EcDXSkADNqzDufzr9lxI9 wIi8+PGNvbCB3 lUE1bV3iUVMsCzN9KCdiS 862WdQvnEWwYisgw9syc9 wzmGy5ZpHxQLNntfPejCi tBKY4i2QeSf59 M02zMNtmLQVcQBVmBHNuX TPzhZchyz5nzW7qIt2+PC 5rx3xxob58zQ02hAW+PHR aBZN6tKykGSsd VKLuoI6cFKwiZeH8NFTqF bQmrW12uVVyMYkaFq5poW zmbCfhPK0cAJRzwdwth95 9AlOso3seTVWh xNMcXQiwPYS1H26xi0G2U NPwYHHzWRX6pOB8gC9xsB lnbjogbGVmdDsgdmVydGl gLQdkAFzgS690 IHRvcDsnPlBhdGllbnQgT sEqJUt3D3RuVbj6ZLBynX ofZK8twPGbZGcvXt6bbNc xfZtkSE0jJHHs zatgw370QcIwz0xsUAVlh UFmMTusOSV1C49xo7O0BW LzNAWjVAU2hQD0sZ9khNy nbjogbGVmdDsg obRvxAveNNerABduV795J HRvcDsnPkJpcnRoIERhdG W5CX06FA34vTSsl1H2cGN 8Z8BkLFYxpgju rxbpfNI7JSOfLOBbkL28Z m4wlXklLu3tCNGvGBL9SI XdzOBrP8VwyT9nUaZzTIS zNBTwO2CfvPYs OCrnH451JRrrGkY7PDKqd zFkL9XyZKMjtDxtGbM4u6 C2Ap3IK3A0NS51IU12sWQ nc9Z2qAK0T8Mt WWZakwuodmingCL1VPUqE HGvmQ70Wt9xxTvuZr1oPN YmNKA6ATCaeGBbI6BrkF2 yOiAjMDAwMDAw F9EviSFjZCclM723OKbkE fS5LDWrdtViX3UmGRMdtZ daVqR8m4S3Qy1ECHf6BC6 9LM06mUKch8X6 lPZ0I9KoBMTmidaplcnwy BY8JPZjWHNlwB61Fr8edL yoWh6xPHGdVNQ6KOBrbMP xL7QkfH1sXwLh SPCuDSRqV3FufVKuCNvuA 061OGoeUsR3PEIgkqWcB7 LbGKBgkYjwUeT7q9J2Up1 HJZVuRR47GPG0 tDO3PI19DZ21S2NcXcxrw GFibGU+PHRhYmxlIHdpZH RoPScxMDAlJyBzdHlsZT0 mVr6nBXNtJFMa iFwomGFmFxUda2nbVBEfP SwmJC1caGzxS8YhqLB4TI Zao6k2Vu16Q44vR5AwlCF +NVRrsVD3bUB5 oZ3xLeIwZbH4OVvgM247G cDxmTKwXyapt3yyk7hjhD o2XrM7ZEYijsVovVnwHTU 0i8VsGy54E15h IHdpZHRoPSIxNSUiIHZhb Iubtc5alR3zPh8+PGNvbC V8zTI6pD5dBtVoIrH2OFg fF539WtZcnZOw Pqcoy7mhr9zivNi2XqWvR YDkzpUnrOomMTM6g7EkBz 04X3LicJuuf2ZcFla4zy0 6pXQui5T2oJT4 Q4YfGODcfbbypQIffQqoX T0pIPKvqhfzIGDalS0kIK DpG4t2FdDdZnE7AXzxX0W zvbH2MEAfgROb KBbhCBE0B82ix2F0MTRfD PIkCOS8jHX5bM1waVkwlf ogbGVmdDsgdmVydGljYWw vEHhxT025XKOi yXelDMEebJ6nQQOlpIQwr IuhBZ6oGVWabpbzZygWRG cPUPhbU0mLLCr8V2DyRkq 5YWCykEibET3q xEShKOqsUf0lyDbscErvN G6aTAIcxzpjRFEvlP5eWT NugREexXloCY6zOJVwwig qf040SsIwVXC6 NUWliNHaI9NqnD5zKeJsC GMcWRGqH6LbgPVzDVgyP5 85OEhrEoO4BGIsvdAfI7C sLWFsaWduOiB0 d5P0Dn1sNV5mVS0wDWT9S Z00CA99aCNab7Q1bVK8G4 FgZLGgrhuzsldqzRF9RDU hXHImmK43zTMd DJaqAv9cq2S2o071LLQgR AUqrF99Ld2qkEabNPAlhN PNfL8qgnzmf6zajfzqSgX bCCOhJIx9HRd1 PPNrlSsoTfIqGHA9OrK7D JM0rJJpfS1ocUzzywykxS 9wOyc+EkYcQYLezfU3D0P rWwg0OHYyqIvo BC8fwTEuWOxsLq8bfAcsz EjtRQ6aYZLwauheCQGbdS 2jTIEzwTCjfXasQM9bBOH jjjxgr961UnKj YYB0ULMdmKLgA5FcnC4uS fYiPCCiKLJqI2XouGPmJB epF166BStiIrF5YOLpicN xA8ZaWTLvlSdp YhQ1d5V3Cd2PQW5zuXJ4V 5GiMwq4RVBsdEcyGU5lyN DqOQcnKc1mbLjjySyoJN0 wNTBpbjtwYWRk sV0cVMXxlYKpdWauAK7jO IZdzfpoi063ZfZlLZP0JI ApfPVtE9FopS4kGjGmBZK jTLZiR7ZdvYLy GAxmL786BCcvMmS2VTSfa nJnY0SmFHEblNlsYqA2k4 Y5Qq1PVOD9rvZixsz2E1F kPjwvdHI+PC90 QAIaFW50iJBdtAXbc3qag Db7ClMnAPGoKVV0yVtpXL uos7BbXXXkO19nmKZem7U 6IGNvbGxhcHNl HtQhrBV8bI1wUPjyghevh 3euiwqjVhfdw6nlwz32mB 95B50bCIciYVMeKBIlGUG sPUArfHngwz1r uI9cDm7+WKOvtSX6iOL1b G9iWpNfIjR9WJebS999Gl GrvZFnNajzl3zap9lgqYx 9IjIwJSIgdmFs fLzbYQW2l9TfVk30O97yX HdpZHRoPSIyMCUiIHZhbG qpjh9hjH3bKd6+SI1jh5k mqj19mC66wFF+ CAEhVSH6rRhfZZjkCNHbh F2nNRrnCyJ6EYBpDtZebI 52qDJqUWicCt6bwFsgmLr kAL4iOTDrmpir w435LcEoq4bsZBKaoILrQ IdpXVZ4X41qc4U0HSHpQD XnTBQ9yFA4yW7upTquych gbGVmdDsgdmVy wDcoJInkHUteZ517RFSvb NheUpAuiMVtK2mkpbNTES 1lOjwvdGQ+UEGjJQS8vSq yUClfKOZmuR9r VKKwF7x7LzAwVkS0YBdnM 8RozsD6INYepUZkBZVdsG SFeG3oxceii1ccaveiKnN jRBOoYOa0VBb7 SNCgzHfmJkTrOEZ9CaR5T TQ2jUDumQ4ilYnyhugoyH 9wOyc+RklOOjwvdGQ+PHR lOTU1gRjyYHpj EVBsuD4bWXDbR5s8OrAbZ oP0AFlgX6YfqsP0DBLjiU YfOZTbhQCDjG8hdtegq9p vcjogIzAwMDAw UQk4VSc1NKNwgEemDlMmO DI0SmN4QYT9xBFneI0yfC qfvbtonA1vQta+TVJOOjw vdGQ+PHRkIHN0 bPzpWRezSDGnrB8hMDPoB 7l9EgSrNbA3UQdkK0Oftj E9DGOqwEUkRENyrPSYfQ1 zcmsxw4jocuuf NjZqTGPjONn7VJl5YQBzv JtzNzWtQWQ8OnX7DIL0wS NlmA9rnHcnbnjnnM8iLso +YDR4ECC6OQ30 XP37M9IuMydtmHCpvUN+P HRhYmxlIHdpZHRoPScxMD MxAfBzfRcjVS6uFi0vPGB yLWNvbGxhcHNl OiBj (more content not included)... Normal [facility] COVID-19 ([facility])on 06-04-2022 Performing Instrument FT Casey 2 Normal [facility] Comment on above: Performed By: #### 2 [id number] ####[facility] [id number] [place] [address] SARS-CoV-2 (COVID-19) RNA HENRRY+probe Ql (Resp) Not detected Normal Not Detected [facility] Comment on above: Result Comment: This test result should be correlated with clinical presentations and medical history by a healthcare provider to determine its clinical significance. This assay was performed by a reverse transcriptase real-time polymerase chain reaction (rt PCR) method on the [employer] system. This test has been authorized only for the detection of nucleic acid from SARS-CoV-2, not for any other viruses or pathogens. This test has not been FDA cleared or approved. This test has been authorized by FDA under an Emergency Use Authorization (EUA). This test is only authorized for the duration of time the declaration on that circumstances exist justifying the authorization emergency use of in vitro diagnostic tests for detection and/or diagnosis of COVID-19 infection under section 564 (b) (1) of the Act, 21 U.S.C. 360 bbb-3 (b) (1), unless authorization is terminated or revoked sooner. Performed By: #### 2 [id number] ####[place] [address] SARS-CoV-2 (COVID-19) RNA HENRRY+probe Ql (Unsp spec) Pass Normal Pass [facility] Comment on above: Performed By: #### 2 [id number] ####[place] [address] Specimen source Nom (Unsp spec) Nasal Normal [facility] Comment on above: Performed By: #### 2 [id number] ####[place] [address] Consent for Treatmenton 05-12 Consent for Treatment [id number]# 1.00CD:127 Normal [facility] COVID-19 ([facility])on 06-02-2022 ADMITTED TO INTENSIVE CARE UNIT FOR CONDITION OF INTEREST:FIND:PT: Unknown Normal [facility] Comment on above: Performed By: #### 2 [id number] ####[place] [address] EMPLOYED IN A HEALTHCARE SETTING:FIND:PT: Unknown Normal [facility] Comment on above: Performed By: #### 2 [id number] ####[place] [id number] FIRST TEST FOR CONDITION OF INTEREST:FIND:PT: Unknown Normal [facility] Comment on above: Performed By: #### 2 [id number] ####[place] [address] HAS SYMPTOMS RELATED TO CONDITION OF INTEREST:FIND:PT: Unknown Normal [facility] Comment on above: Performed By: #### 2 [id number] ####[facility] [id number] [place] [address] HOSPITALIZED FOR CONDITION OF INTEREST:FIND:PT: Unknown Normal [facility] Comment on above: Performed By: #### 2 [id number] ####[facility] [address] [place] [address] STATUS:FIND:PT: Unknown Normal [facility] Comment on above: Performed By: #### 2 [id number] ####[place] [address] RESIDES IN A [facility] CARE SETTING:FIND:PT: Unknown Normal [facility] Comment on above: Performed By: #### 2 [id number] ####[facility] [address] [place] [address] Consent for Procedure/Surger yon 04-13-2022 Consent for Procedure/Surgery [id number]#1 .00CD:127 Normal [facility] Ambulatory Visit Summaryon 0 10-23-2021 Ambulatory Visit Summary BELIA MOORE :1955 Visit Date:10/23/2021 Ambulatory Visit Instructions Your Diagnosis History of colon polyps Family history of colon cancer Your Care Team Attending Physician - Kayli Miller CNP A Primary Care Physician - NINFA CHILDS MD This Is Your Medications List polyethylene glycol 3350 with electrolytes (polyethylene glycol 3350 with electrolytes Oral Pwdr for Adrianne 4000 mL (NuLytely)) Contact prescribing physician if questions or concerns ascorbic acid (Vitamin C) aspirin bifidobacterium-lacto bacillus (Probiotic Formula) biotin cholecalciferol (Vitamin D3) cinnamon (Cinnamon) clopidogrel (Plavix) cyanocobalamin (Vitamin B12) glucosamine isosorbide mononitrate (Imdur) magnesium oxide metoprolol (Lopressor) nitroglycerin (Nitrostat) pseudoephedrine (Sudafed) ranitidine simvastatin (Zocor) tramadol ubiquinone (Co Q-10) zolpidem (Ambien) Procedures Performed Colonoscopy (07/09/2015). Discharge Vitals Temperature (Oral) 36.9 ?C Heart Rate (Peripheral) 69 Blood Pressure 137/78 Height 175.2 cm Height 175.2 cm Weight 88.5 kg Weight 88.5 kg BMI 28.83 What to do next You Need to Schedule the Following Appointments Follow Up with Kayli Miller CNP When: Within 2 to 4 weeks Where: Medications What How Much When Instructions New polyethylene glycol 3350 with electrolytes (polyethylene glycol 3350 with electrolytes Oral Pwdr for Adrianne 4000 mL (NuLytely)) See instructions PER PHYSICIAN INSTRUCTIONS. PRIOR TO COLONOSCOPY. Pickup at [facility]/pharmacy #[id number] Unchanged ascorbic acid (Vitamin C) 1,000 Milligram By Mouth Every day Contact prescribing physician if questions or concerns Unchanged aspirin 81 Milligram By Mouth Every day Contact prescribing physician if questions or concerns Unchanged bifidobacterium-lacto bacillus (Probiotic Formula) 1 Capsules By Mouth Every day Contact prescribing physician if questions or concerns Unchanged biotin See instructions Contact prescribing physician if questions or concerns Unchanged cholecalciferol (Vitamin D3) 2,000 International unit By Mouth Every day Contact prescribing physician if questions or concerns Unchanged cinnamon (Cinnamon) 500 Milligram By Mouth 2 times a day Contact prescribing physician if questions or concerns Unchanged clopidogrel (Plavix) 75 Milligram By Mouth Every day Contact prescribing physician if questions or concerns Unchanged cyanocobalamin (Vitamin B12) See instructions Contact prescribing physician if questions or concerns Unchanged glucosamine 500 Milligram By Mouth Every day Contact prescribing physician if questions or concerns Unchanged isosorbide mononitrate (Imdur) 30 Milligram By Mouth Once a day (in the morning) Contact prescribing physician if questions or concerns Unchanged magnesium oxide 250 Milligram By Mouth Every day Contact prescribing physician if questions or concerns Unchanged metoprolol (Lopressor) Contact prescribing physician if questions or concerns Unchanged nitroglycerin (Nitrostat) 0.4 Milligram Sublingual As needed for Chest pain Contact prescribing physician if questions or concerns Unchanged pseudoephedrine (Sudafed) Contact prescribing physician if questions or concerns Unchanged ranitidine 150 Milligram By Mouth 2 times a day as needed for Control of stomach acid Contact prescribing physician if questions or concerns Unchanged simvastatin (Zocor) 40 Milligram By Mouth Once a day (at bedtime) Contact prescribing physician if questions or concerns Unchanged tramadol 50 Milligram By Mouth As needed for as needed for pain Contact prescribing physician if questions or concerns Unchanged ubiquinone (Co Q-10) See instructions Contact prescribing physician if questions or concerns Unchanged zolpidem (Ambien) 10 Milligram By Mouth Once a day (at bedtime) as needed for Insomnia take 1/ 2 tablet as needed Contact prescribing physician if questions or concerns Pharmacy Information [facility]/pharmacy #[id number]: [address], [place] [id number] [phone] Allergies No Known Allergies Problems Ongoing - Any problem that you are currently receiving treatment for. Family history of colon cancer History of colon polyps Education Materials Colonoscopy, Adult A colonoscopy is an exam to look at the entire large intestine. During the exam, a lubricated, flexible tube that has a camera on the end of it is inserted into the anus and then passed into the rectum, colon, and other parts of the large intestine. You may have a colonoscopy as a part of normal colorectal screening or if you have certain symptoms, such as: ? Lack of red blood cells (anemia). ? Diarrhea that does not go away. ? Abdominal pain. ? Blood in your stool (feces). A colonoscopy can help screen for and diagnose medical problems, including: ? Tumors. ? Polyps. ? Inflammation. ? Areas of bleeding. Tell a health care provid (more content not included)... Normal [facility] Consent for Procedure/Surger yon 10-23-2021 Consent for Procedure/Surgery [id number]# [id number] Normal [facility] Gastroenterology Office/Clin ic Noteon 10-23-2021 Gastroenterology Office/Clinic Note Chief Complaint colonoscopy HPI Staff CHUMMER Belia is a 66 y.o. female previously seen in 2018. Returning for 5 year surveillance. Last seen 04/10/18. Last colonoscopy done 07/09/15. History of Present Illness Patient is a 66-year-old female who presents for colonoscopy. Patient previous colonoscopy 06/[address] Haynes that revealed polyp removed from sigmoid that pathology revealed intramucosal leiomyoma, diverticulosis, hemorrhoids. Patient also had previous EGD 06/2015 that revealed normal esophagus, small hiatal hernia with mild antral erythema, normal duodenum, stomach biopsy revealed negative for H. pylori. Patient overdue for colonoscopy. Family history of colon cancer: Paternal uncle. Family history of colon polyps: Denies. Personal history of colon cancer: Denies. Personal history of colon polyps: Yes, see above. Takes aspirin daily. Patient with hx. MA s/p cardiac stent in 2013- follows with Cardiology. During today's visit, patient reports 2 months ago she had discomfort in LLQ that has since resolved completely after taking fiber. Denies fevers/chills, N/V/D. Is taking fiber daily. Denies having any other GI complaints. Review of Systems PHQ Score Initial Depression Screen Score: 0 ROS - Provider Constitutional: no fever, no chills. Skin: no Jaundice. ENMT: Denies dysphagia and heartburn. Respiratory: no shortness of breath. Cardiovascular: no chest pain. Gastrointestinal: no nausea, no vomiting, no diarrhea, no GI bleeding. Physical Exam Vitals & Measurements T: 36.9 ?C(Oral) HR: 69(Peripheral) BP: 137/78 SpO2: 98% HT: 175.2 cm HT: 175.2 cm WT: 88.5 kg WT: 88.5 kg BMI: 28.83 General: Well developed, well nourished, in no acute distress Head: Normocephalic/atrauma tic Lungs: Normal respiratory effort and clear to auscultation Cardio: Regular rate and rhythm, normal S1 and S2, no murmur, no rub Abdomen: Soft, non-distended, non-tender. Normoactive bowel sounds present in all 4 abdominal quadrants, bilaterally. Mental Status: Alert and oriented x3. Normal mood and affect Assessment/Plan BP elevated today 127/84 at 150/80. BP rechecked and stable at 137/78. 1. History of colon polyps (Z86.010: Personal history of colonic polyps) FH colon cancer: Paternal uncle. Previous colonoscopy 06/[address] Haynes that revealed polyp removed from sigmoid that pathology revealed intramucosal leiomyoma. hx. MA s/p cardiac stent in 2013- follows with Cardiology. Ordered Colonoscopy. Takes aspirin daily. Ordered: Colonoscopy (Hospital Procedure) 2. Family history of colon cancer (Z80.0: Family history of malignant neoplasm of digestive organs) Same as above plan of care. See # 1. Ordered: Colonoscopy (Hospital Procedure) Orders: polyethylene glycol 3350 with electrolytes, See Instructions, 1 EA, Refill(s) 0, PER PHYSICIAN INSTRUCTIONS. PRIOR TO COLONOSCOPY., [id number], 175.2, cm, 10/23/21 10:55:00 EDT, Height/Length Dosing, 88.5, kg, 10/23/21 10:55:00 EDT, Weight Dosing Follow-up With When Contact Information Kayil Miller CNP Within 2 to 4 weeks Additional Instructions: Patient Education Colonoscopy, Adult Problem List/Past Medical History Ongoing Family history of colon cancer History of colon polyps Historical No qualifying data Procedure/Surgical History Colonoscopy (07/09/2015). Medications Ambien, 10 mg, Oral, Once a day (at bedtime), PRN aspirin, 81 mg, Oral, Daily biotin, See Instructions Cinnamon, 500 mg, Oral, BID Co Q-10, See Instructions, Not taking glucosamine, 500 mg, Oral, Daily, Not taking Imdur, 30 mg, Oral, qAM, Not taking Lopressor, Not taking magnesium oxide, 250 mg, Oral, Daily Nitrostat, 0.4 mg, SubLingual, PRN Plavix, 75 mg, Oral, Daily, Not taking polyethylene glycol 3350 with electrolytes Oral Pwdr for Adrianne 4000 mL (NuLytely), See Instructions Probiotic Formula, 1 cap(s), Oral, Daily ranitidine, 150 mg, Oral, BID, PRN, Not taking Sudafed tramadol, 50 mg, Oral, PRN Vitamin B12, See Instructions Vitamin C, 1000 mg, Oral, Daily Vitamin D3, 2000 International_Unit, Oral, Daily Zocor, 40 mg, Oral, Once a day (at bedtime) Allergies No Known Allergies Social History Tobacco Never (less than 100 in lifetime) Tobacco Use:. Never Smokeless Tobacco Use:., 10/23/2021 Family History Cardiac arrest: Father. Diabetes mellitus type 2: Mother. Diverticulitis of colon: Mother. Normal [facility] Comment on above: Result Comment: Elec tronically Signed By: Kayli Miller CNP\.br\Date and Time Signed: 10/23/21 11:11 EDT Patient Educationon 10-24-19 Patient Education Radiology Colonoscopy, Adult A colonoscopy is an exam to look at the entire large intestine. During the exam, a lubricated, flexible tube that has a camera on the end of it is inserted into the anus and then passed into the rectum, colon, and other parts of the large intestine. You may have a colonoscopy as a part of normal colorectal screening or if you have certain symptoms, such as: ? Lack of red blood cells (anemia). ? Diarrhea that does not go away. ? Abdominal pain. ? Blood in your stool (feces). A colonoscopy can help screen for and diagnose medical problems, including: ? Tumors. ? Polyps. ? Inflammation. ? Areas of bleeding. Tell a health care provider about: ? Any allergies you have. ? All medicines you are taking, including vitamins, herbs, eye drops, creams, and [id number] medicines. ? Any problems you or family members have had with anesthetic medicines. ? Any blood disorders you have. ? Any surgeries you have had. ? Any medical conditions you have. ? Any problems you have had passing stool. What are the risks? Generally, this is a safe procedure. However, problems may occur, including: ? Bleeding. ? A tear in the intestine. ? A reaction to medicines given during the exam. ? Infection (rare). What happens before the procedure? Eating and drinking restrictions Follow instructions from your health care provider about eating and drinking, which may include: ? A few days before the procedure ? follow a low-fiber diet. Avoid nuts, seeds, dried fruit, raw fruits, and vegetables. ? 1?3 days before the procedure ? follow a clear liquid diet. Drink only clear liquids, such as clear broth or bouillon, black coffee or tea, clear juice, clear soft drinks or sports drinks, gelatin dessert, and popsicles. Avoid any liquids that contain red or purple dye. ? On the day of the procedure ? do not eat or drink anything starting 2 hours before the procedure, or within the time period that your health care provider recommends. Up to 2 hours before the procedure, you may continue to drink clear liquids, such as water or clear fruit juice. Bowel prep If you were prescribed an oral bowel prep to clean out your colon: ? Take it as told by your health care provider. Starting the day before your procedure, you will need to drink a large amount of medicated liquid. The liquid will cause you to have multiple loose stools until your stool is almost clear or light green. ? If your skin or anus gets irritated from diarrhea, you may use these to relieve the irritation: ? Medicated wipes, such as adult wet wipes with aloe and vitamin E. ? A skin-soothing product like petroleum jelly. ? If you vomit while drinking the bowel prep, take a break for up to 60 minutes and then begin the bowel prep again. If vomiting continues and you cannot take the bowel prep without vomiting, call your health care provider. ? To clean out your colon, you may also be given: ? Laxative medicines. ? Instructions about how to use an enema. General instructions ? Ask your health care provider about: ? Changing or stopping your regular medicines or supplements. This is especially important if you are taking iron supplements, diabetes medicines, or blood thinners. ? Taking medicines such as aspirin and ibuprofen. These medicines can thin your blood. Do not take these medicines before the procedure if your health care provider tells you not to. ? Plan to have someone take you home from the hospital or clinic. What happens during the procedure? ? An IV may be inserted into one of your veins. ? You will be given medicine to help you relax (sedative). ? To reduce your risk of infection: ? Your health care team will wash or sanitize their hands. ? Your anal area will be washed with soap. ? You will be asked to lie on your side with your knees bent. ? Your health care provider will lubricate a long, thin, flexible tube. The tube will have a camera and a light on the end. ? The tube will be inserted into your anus. ? The tube will be gently eased through your rectum and colon. ? Air will be delivered into your colon to keep it open. You may feel some pressure or cramping. ? The camera will be used to take images during the procedure. ? A small tissue sample may be removed to be examined under a microscope (biopsy). ? If small polyps are found, your health care provider may remove them and have them checked for cancer cells. ? When the exam is done, the tube will be removed. The procedure may vary among health care providers and hospitals. What happens after the procedure? ? Your blood pressure, heart rate, breathing rate, and blood oxygen level will be monitored until the medicines you were given have worn off. ? Do not drive for 24 hours after the exam. ? You may have a small amount of blood in your stool. ? You may pass gas and have mild abdominal cramping or bloating due to the air t (more content not included)... Normal [facility] Vital Signs Date Time Vital Sign Value Performing Clinician Facility 08-21-2024 15:07-0500 Body height 175.26 cm [facility] 08-21-2024 15:07-0500 Body mass index (BMI) [Ratio] 29.8 kg/m2 [facility] 08-21-2024 15:07-0500 Body weight 91.62 kg [facility] 08-21-2024 15:07-0500 Diastolic blood pressure 83 mm[Hg] [facility] 08-21-2024 15:07-0500 Heart rate 65 /min [facility] 08-21-2024 15:07-0500 Systolic blood pressure 134 mm[Hg] [facility] 05-24-2024 14:47-0500 Body height 175.26 cm [facility] 05-24-2024 14:47-0500 Body mass index (BMI) [Ratio] 29.8 kg/m2 [facility] 05-24-2024 14:47-0500 Body weight 91.62 kg [facility] 05-24-2024 14:47-0500 Diastolic blood pressure 79 mm[Hg] [facility] 05-24-2024 14:47-0500 Heart rate 73 /min [facility] 05-24-2024 14:47-0500 Systolic blood pressure 154 mm[Hg] [facility] 04-26-2023 11:45-0400 Body height 175.26 cm Ninfa Childs Other [employer] Other 04-26-2023 11:45-0400 Body mass index (BMI) [Ratio] 29.12 kg/m2 Ninfa Childs Other [employer] Other 04-26-2023 11:45-0400 Body temperature 97.5 [degF] Ninfa Childs Other [employer] Other 04-26-2023 11:45-0400 Body weight 89.45 kg Ninfa Childs Other [employer] Other 04-26-2023 11:45-0400 Diastolic blood pressure 83 mm[Hg] Ninfa Childs Other [employer] Other 04-26-2023 11:45-0400 Systolic blood pressure 159 mm[Hg] Ninfa Childs Other [employer] Other 11-11-2022 15:45-0400 Body height 175.26 cm Ninfa Childs Other [employer] Other 11-11-2022 15:45-0400 Body mass index (BMI) [Ratio] 28.79 kg/m2 Ninfa Childs Other [employer] Other 11-11-2022 15:45-0400 Body weight 88.45 kg Ninfa Childs Other [employer] Other 11-11-2022 15:45-0400 Diastolic blood pressure 76 mm[Hg] Ninfa Childs Other [employer] Other 11-11-2022 15:45-0400 SaO2% (BldA) [Mass fraction] 97 % Ninfa Childs Other [employer] Other 11-11-2022 15:45-0400 Systolic blood pressure 142 mm[Hg] Ninfa Childs Other [employer] Other 06-10-2022 10:11-0500 Diastolic blood pressure 74 mm[Hg] [employer] [facility] 06-10-2022 10:11-0500 Heart rate 65 /min [facility] [employer] [facility] 06-10-2022 10:11-0500 Respiratory rate 26 /min Infante SALAM [facility] 06-10-2022 10:11-0500 SaO2% (BldA) [Mass fraction] 99 % [facility] SALAM [facility] 06-10-2022 10:11-0500 Systolic blood pressure 133 mm[Hg] [facility] SALAM [facility] 06-10-2022 10:00-0500 Diastolic blood pressure 57 mm[Hg] [facility]ante SALAM [facility] 06-10-2022 10:00-0500 Heart rate 71 /min Infante SALAM [facility] 06-10-2022 10:00-0500 Respiratory rate 17 /min Infante SALAM [facility] 06-10-2022 10:00-0500 Systolic blood pressure 126 mm[Hg] Infante SALAM [facility] 06-10-2022 09:55-0500 Diastolic blood pressure 75 mm[Hg] [facility] SALAM [facility] 06-10-2022 09:55-0500 Heart rate 70 /min [facility] SALAM [facility] 06-10-2022 09:55-0500 Respiratory rate 15 /min [facility] SALAM [facility] 06-10-2022 09:55-0500 SaO2% (BldA) [Mass fraction] 98 % [facility] SALAM [facility] 06-10-2022 09:55-0500 Systolic blood pressure 143 mm[Hg] [facility] SALAM [facility] 06-10-2022 09:46-0500 Body temperature 97.52 [degF] [facility] SALAM [facility] 06-10-2022 09:30-0500 Respiratory rate 16 /min [facility] SALAM [facility] 06-10-2022 08:23-0500 Blood Pressure Location [facility] SAL[facility] 06-10-2022 08:23-0500 Body temperature 97.16 [degF] [facility] SAL[facility] 10-23-2021 11:10-0400 Diastolic blood pressure 78 mm[Hg] Kayli Angela [facility] 10-23-2021 11:10-0400 Mean blood pressure 98 mm[Hg] Kayli Angela [facility] 10-23-2021 11:10-0400 Systolic blood pressure 137 mm[Hg] Kayli Angela [facility] 10-23-2021 10:56-0400 Diastolic blood pressure 80 mm[Hg] Kayli Angela [facility] 10-23-2021 10:56-0400 Mean blood pressure 103 mm[Hg] Kayli Angela [facility] 10-23-2021 10:56-0400 Systolic blood pressure 150 mm[Hg] Kayli Angela [facility] 10-23-2021 10:49-0400 Blood Pressure Location Kayli Angela [facility] 10-23-2021 10:49-0400 Body temperature 98.42 [degF] Kayli Miller [facility] 10-23-2021 10:49-0400 Diastolic blood pressure 84 mm[Hg] Kayli Miller [facility] 10-23-2021 10:49-0400 Heart rate 69 /min Kayli Miller [facility] 10-23-2021 10:49-0400 SaO2% (BldA) [Mass fraction] 98 % Kayli Miller [facility] 10-23-2021 10:49-0400 Systolic blood pressure 147 mm[Hg] Kayli Miller [facility] Encounters Encounter Date Encounter Type Care Provider Facility Start: 08-21-2024 End: 08-21-2024 ambulatory [facility] Work Phone: Start: 08-21-2024 End: 08-21-2024 Patient encounter procedure [facility] Physician [facility] Work Phone: Start: 08-14-2024 End: 08-14-2024 ambulatory [facility] Start: 05-24-2024 End: 05-24-2024 Patient encounter procedure [facility] Physician [facility] Work Phone: Start: 04-11-2024 End: 04-11-2024 Patient encounter procedure MD Ninfa Childs Work Phone: [facility] Work Phone: Start: 04-11-2024 End: 04-11-2024 ambulatory Ninfa Childs Facility:[facility] Start: 10-24-2023 End: 10-24-2023 ambulatory MARIE GONZALEZ Not Available Start: 08-06-2023 End: 08-06-2023 ambulatory Ninfa Childs Other [employer] Other Start: 08-06-2023 Telephone encounter Ninfa Childs [facility] Start: 07-08-2023 End: 07-08-2023 ambulatory JAE BLANCAS Not Available Start: 06-23-2023 End: 06-23-2023 ambulatory Ninfa Childs Other [employer] Other Start: 06-23-2023 Telephone encounter Ninfa Childs [facility] Start: 04-26-2023 End: 04-26-2023 ambulatory Ninfa Childs Other [employer] Other Start: 04-26-2023 Office outpatient vi sit 15 minutes Ninfa Childs [facility] Start: 03-28-2023 End: 03-28-2023 ambulatory Ninfa Childs Other [employer] Other Start: 03-28-2023 Telephone encounter Ninfa Naz [facility] Start: 2023 End: 2023 ambulatory Ninfa Childs Other [employer] Other Start: 2023 Telephone encounter Ninfa Naz [facility] Start: 02-10-2023 End: 02-10-2023 ambulatory Bharat Mani Other [employer] Other Start: 02-10-2023 Telephone encounter Bharat Singleton [facility] Start: 02-04-2023 End: 02-04-2023 ambulatory Ninfa Childs Other [employer] Other Start: 02-04-2023 Telephone encounter Ninfa Childs [facility] Start: 02-03-2023 End: 02-03-2023 ambulatory Ninfa Childs Other [employer] Other Start: 02-03-2023 Telephone encounter Ninfa Childs [facility] Start: 01-21-2023 End: 01-21-2023 ambulatory MD Ninfa Childs Work Phone: [facility] Work Phone: Start: 01-21-2023 End: 01-21-2023 Patient encounter procedure MD Ninfa Childs Work Phone: [facility] Work Phone: Start: 12-07-2022 End: 12-07-2022 ambulatory Ninfa Childs Other [employer] Other Start: 12-07-2022 Telephone encounter Ninfa Childs [facility] Start: 11-12-2022 End: 11-13-[address] CONOR HEAD Facility: Start: 11-11-2022 End: 11-11-2022 ambulatory Ninfa Childs Other [employer] Other Start: 11-11-2022 Office outpatient vi sit 15 minutes Ninfa Childs [facility] Start: 06-10-2022 End: 06-11-2022 ambulatory Infante SAL Facility:[facility] Start: 06-10-2022 End: 06-10-2022 Patient encounter procedure Naresh HAYNES [facility] Start: 06-03-2022 End: 09-03-2022 ambulatory Infante SALAM Facility:[facility] Start: 05-07-2022 End: 05-08-[address] NINFA CHILDS Facility: Start: 04-23-2022 Adult health examination Ninfa Childs Other [employer] Other Start: 04-23-2022 Encounter for genera l adult medical examination with abnormal findings Ninfa Childs Other [employer] Other Start: 04-23-2022 Problem, abnormal examination Ninfa Childs Other [employer] Other Start: 04-12-2022 End: 09-02-2022 Recurring [facility] Start: 12-14-2021 ambulatory [facility] Facility:[facility] Start: 12-11-2021 End: 03-12-2022 ambulatory [facility] Facility:[facility] Start: 11-13-2021 End: 11-13-2021 Patient encounter procedure MD Ninfa Childs Work Phone: [facility] Start: 10-23-2021 End: 10-24-2021 ambulatory Kayli Miller Facility:[facility] Start: 10-23-2021 End: 2022 Recurring [facility] Start: 10-23-2021 End: 12-19-2021 [facility] Start: 10-23-2021 End: 10-23-2021 Patient encounter procedure Kayli Miller [facility] Start: 10-09-2021 ambulatory [facility] Start: 10-06-2021 ambulatory [facility] Facility:[facility]ie Godoy Start: 10-03-2020 End: 10-03-2020 Patient encounter procedure Ninfa Childs [facility] Procedures Date Procedure Procedure Detail Performing Clinician Start: 04-11-2024 Screening mammograph y of bilateral breasts MD Ninfa Childs Work Phone: Start: 01-21-2023 Dual energy X-ray absorptiometry MD Ninfa Childs Work Phone: Start: 01-21-2023 Screening mammograph y of bilateral breasts MD Ninfa Childs Work Phone: Start: 06-10-2022 Colonoscopy Naresh Hodges Start: 11-13-2021 Screening mammograph y of bilateral breasts MD Ninfa Childs Work Phone: Start: 10-03-2020 Dual energy X-ray ph oton absorptiometry Ninfa Childs Start: 10-03-2020 Screening mammograph y of bilateral breasts Ninfa Childs Start: 12-01-2016 Screening mammography Carroll Childs Other Start: 07-09-2015 Colonoscopy Kayli Avani king Screening for malign ant neoplasm of breast Ninfa Childs Other Plan of Treatment Date Care Activity Detail Author XR Cervical spine 5 Views [facility] Immunizations Immunization Date Immunization Notes Care Provider Fa cility 12-27-2021 zoster vaccine, live Ninfa Childs Other [facility] Payers Date Payer Category Payer Unknown [id number] 2023 Medicare [id number] 1959 Private Health Insurance [id number] 1957 Self-pay [id number] 1955 Unknown [id number] 1957 Unknown [id number] 1957 Unknown [id number] 1955 Unknown [id number] 2.16.8 [id number] 1955 Unknown [id number] 2.16.8 [id number] 1955 Unknown [id number] 2.16.84 [id number] 1955 Unknown [id number] 2.16.84 [id number] 1955 Unknown [id number] 2.16.84 [id number] 1955 Unknown [id number] Private Health Insurance W [id number] Unknown [id number] 2.16.84 [id number] Social History Date Type Detail Facility Tobacco smoking stat [facility] Unknown if ever smoked [facility] Start: 1955 Sex Assigned At Female F [facility] Start: 10-23-2021 End: 10-13-2023 Tobacco smoking status Never smoked tobacco (finding) [facility] Tobacco [facility] Sex Assigned At Female [facility] Start: 08-21-2024 Sex Female (finding) [facility] Goals Date Patient Goal Desired Activity /State Functional Status Date Assessment Result Facility 06-10-2022 Functional Status N/A [facility] Clinical Notes 10-23-2021 to 08-14-2024 Note Date & Type Note Facility 08-14-2024 Note [facility] Note Reason for cardiology visit: Uncontrolled hypertension, coronary artery disease. Patient was not seen since 11/19/2022 HPI: Belia Moore is a 69 y.o. female with history of coronary artery disease, status post stent placement in obtuse marginal branch in 2013 and at that time she had mid LAD chronic occlusion with right to left collaterals, hypertension, hyperlipidemia. She also has history of lumbar disc disease. According to old cardiology notes the patient had cardiac catheterization June 2014 which showed occluded mid LAD with very large diagonal vessels that does travel slightly lateral to the LAD and close to the left ventricle apex with right to left collaterals, high-grade stenosis of obtuse marginal branch s/p stent placement, the RCA has about 50% stenosis. Patient is here today for follow-up visit. She is active and she exercises 3 times a week without any chest pain or shortness of breath. She states that occasionally if she eats and she walks fast immediately after that she may feel some fullness in the chest. She denies orthopnea or paroxysmal nocturnal dyspnea or dizziness or palpitations. She denies legs edema or legs discomfort on exertion. She forgets to take lisinopril most of the time because she takes it usually at noon time. She takes simvastatin only twice a week because of concern about side effects. Review of the systems All systems were reviewed and they were negative except for the positive findings noted above in the history Past Medical History She has a past medical history of Coronary artery disease, GERD (gastroesophageal reflux disease), Hyperlipidemia, Hypertension, and Myocardial infarction ([facility]). Surgical History She has a past surgical history that includes Coronary stent placement and Cardiac catheterization. Social History She reports that she has never smoked. She has never used smokeless tobacco. She reports that she does not currently use alcohol. No history on file for drug use. Family History Family History Problem Relation Name Age of Onset Diabetes Mother Coronary artery disease Mother Kidney disease Mother Coronary artery disease Father Diabetes Brother Other (heart transplant) Brother Allergies Patient has no known allergies. Medications Current Outpatient Medications: aspirin 81 mg EC tablet, in the morning., Disp: , Rfl: cholecalciferol, vitamin D3, 50 mcg (2,000 unit) capsule, 1 capsule in the morning., Disp: , Rfl: cyanocobalamin (Vitamin B-12) 1,000 mcg tablet, Take 1,000 mcg by mouth in the morning., Disp: , Rfl: lisinopril 2.5 mg tablet, TAKE 1 TABLET (2.5 MG) BY MOUTH ONCE DAILY DIRECTED. (Patient taking differently: Take 2.5 mg by mouth 3 (three) times a week.), Disp: 90 tablet, Rfl: 3 loratadine (Claritin) 10 mg tablet, loratadine 10 mg tablet TAKE 1 TABLET BY MOUTH EVERY DAY, Disp: , Rfl: nitroglycerin (Nitrostat) 0.4 mg SL tablet, PLACE 1 TABLET (0.4 MG) UNDER THE TONGUE EVERY 5 MINUTES NEEDED FOR CHEST PAIN, Disp: 100 tablet, Rfl: 3 simvastatin (Zocor) 40 mg tablet, TAKE 1 TABLET BY MOUTH 3 TIMES PER WEEK (Patient taking differently: Take 40 mg by mouth 2 (two) times a week.), Disp: 36 tablet, Rfl: 0 carvedilol (Coreg) 3.125 mg tablet, Take 1 tablet (3.125 mg) by mouth with breakfast and with evening meal., Disp: 180 tablet, Rfl: 3 Last Recorded Vitals Visit Vitals BP 176/86 (BP Location: Right arm, Patient Position: Sitting) Pulse 71 Ht 1.753 m (5' 9 ) Wt 91.2 kg (201 lb) SpO2 95% BMI 29.68 kg/m??? Smoking Status Never BSA 2.11 m??? Physical Examination: GENERAL: alert and oriented x3, well developed, in no acute distress. HEAD: atraumatic, normocephalic. EYES: SERAFIN, EOMI. NECK: trachea midline, no JVD present, no carotid bruits present. CARDIAC: S1, S2 present. RRR. No murmur, rubs, or gallops. RESPIRATORY: CTAB, no increased effort of breathing, no rales, rhonchi, or wheezing. ABDOMEN: soft, nontender, nondistended. EXTREMITIES: no lower extremity edema. No rash/skin discoloration present. NEURO: strength/sensation equal and symmetric in bilateral upper and lower extremities. PSYCH: appropriate mood, affect, and judgement. Labs: 11/12/2022 White blood count 4.3, hemoglobin 14, hematocrit 44.8, platelets 238 Sodium 143, potassium 4.5, glucose 95, BUN 13, creatinine 0.82, GFR above 60 Cholesterol 214, HDL 69, LDL 119, triglyceride 130 TSH 2.534 Last Images: EKG today 08/14/2024 showed normal sinus rhythm, heart rate 71 bpm, normal EKG Echo 11/12/2022 Cardiac catheterization 06/24/2014 at [facility] Angioplasty procedure 06/24/2014 at [facility] Assessment and Plan: Coronary artery disease, Status post stent placement of obtuse marginal branch in 2013, she has mid LAD total occlusion and mild to moderate disease of the RCA. Clinically stable She i (more content not included)... [facility] 05-24-2024 Evaluation note Diagnosis Onset Date Resolution Chronic cervical pain acute May 2:41pm Insomnia acute May 24, 2024 2:41pm [facility] Work Phone: [phone]) 904-290612-14-2023 Evaluation note* Encounter Date Diagnosis Assessment Notes Treatment Notes Treatment Clinical Notes Jun, Degenerative disc disease, cervical (ICD-10 - M50.30) [employer] Other 10-17-2023 Evaluation note* Encounter Date Diagnosis Assessment Notes Treatment Notes Treatment Clinical Notes Apr, Bronchitis (ICD-10 - J40) Notes chronic cough related to postnasal drainage. Finish antibiotics as prescribed. Okay to continue certain gvkd-hmn-xihpzhv medications as needed. Apr, Lumbar pain (ICD-10 -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 Assessments Information Available Summary Purpose Family History Relationship Condition Age at Onset Recorded Date/T yuly father Unknown Heart disease Unknown mother Diabetes mellitus Unknown sister Hypertension Unknown Additional Source Comments Care Teams (unrecognized sec tion and content) Team Status: Inactive Member Role Status Dates Ninfa Childs MD Primary Care Provider, Referring Jairon coluter Active Referral Self Attending Provider Active Team Status: Active Member Role Status Dates Ninfa Childs MD Primary Care Provider Active Team Status: Inactive Member Role Status Dates Ninfa Childs MD Primary Care Provider, Attending P yfn Active Team Status: Inactive Member Role Status Dates Ninfa Childs MD Primary Care Provider Active Start: April 11, 2024 End: April 11, 2024 Referral Self Attending Provider Active Start: O ct2023 End: April 11, 2024 Team Status: Inactive Member Role Status Dates Ninfa Childs MD Primary Care Provide r, Attending Provider Active Start: May 24, 2024 End: May 24, 2024 Team Status: Inactive Member Role Status Dates Ninfa Childs MD Primary Care Provide r, Attending Provider Active Start: August 21, 2024 End: August 21, 2024 Goals (unrecognized section and content) Goals may be documented in a n alternate section INFORMATION SOURCE (unrecogn ized section and content) DATE CREATED AUTHOR 09/03/2022 [place] [facility] DATE CREATED AUTHOR AUTHOR'S ORGANIZ ATION 11/19/2022 [facility] DATE CREATED AUTHOR AUTHOR'S ORGANIZ ATION 10/25/2023 [facility] EPIC DATE CREATED AUTHOR AUTHOR'S ORGANIZ ATION 04/13/2024 [facility] DATE CREATED AUTHOR AUTHOR'S ORGANIZ ATION 08/16/2024 [facility] REASON FOR VISIT (unrecogniz ed section and content) Check Uprefillwants xrayXray changeRefillDizzinessRefillsore throatMRI orderNo Information FOR RECORDS PERTAINING TO PATIENTS WHO ARE OR HAVE BEEN ENROLLED IN A CHEMICAL DEPENDENCY/SUBSTANCEABUSE PROGRAM, SOME INFORMATION MAY BE OMITTED. This clinical summary was aggregated from multiple sources. Caution should be exercised in using it in the provision of clinical care. This summary normalizes information from multiple sources, and as a consequence, information in this document may materially change the coding, format and clinical context of patient data. In addition, data may be omitted in some cases. CLINICAL DECISIONS SHOULD BE BASED ON THE PRIMARY CLINICAL RECORDS. [employer] provides no warranty or guarantee of the accuracy or completeness of information in this document.
[2024-09-14 12:01] LABS: Alanine Aminotransferase 26 U/L (14-59); Aspartate Amino Transferase 15 U/L (15-37); Chol HDL Ratio 3.2; Cholesterol 215 mg/dL (<=200); HDL Cholesterol 67 mg/dL (40-60); Triglycerides 133 mg/dL (<=150); VLDL CHOLESTEROL 26.6 mg/dL
== END 2024-09-14 10:16 | disposition home or self-care (01) ==
LOC: LAB 10:17
PROVIDERS: PCP Family Medicine; Visit Provider Internal Medicine Cardiovascular Disease
DX: E78.5 Hyperlipidemia, unspecified (principal)
CPT/HCPCS: 36415; 80061; 84450; 84460

== ENCOUNTER 2025-04-30 09:35 | Outpatient (OUT) | payer MEDICARE, OTHER, SELFPAY ==
--- OUTSIDE RECORDS SUMMARY | 2025-04-30 09:41 | XMS_ITS | CCD ---
Author Organization [facility] Care Team Providers Care Supervisor Sanding Name Role Phone Ninfa Childs Primary Care Provider Ninfa Childs Attending Provider NINFA CHILDS Primary Care Physician [phone] MD Ninfa Childs Primary Care Provider MD Ninfa Childs Referring Provider Self, Referral Attending Provider Unavailable SALAM, Infante Attending Unavailable SALAM, Infante Referring Unavailable SALAM, Infante Admitting Unavailable SALAM, Naresh Attending Unavailable SALAM, Naresh Referring Unavailable SALAM, Infante Admitting Unavailable Kayli Miller Attending Unavailable SALAM, Naresh Attending Unavailable SALAM, Infante Referring Unavailable SALAM, Naresh Admitting Unavailable Ninfa Childs Unavailable REQUEST, NONE LISTED Attending Unavaila ble REQUEST, NONE LISTED Consulting Unavaila ble CHILDS, DR NINFA Lugo Primary Care Unavailable REQUEST, NONE LISTED Admitting Unavaila ble NAZ, DR NINFA Lugo Primary Care Unavailable Marlon Aguilar Consulting Unavailable NAZ, DR NINFA Lugo Admitting Unavailable CHILDS, DR NINFA Lugo Attending Unavailable CHILDS, DR NINFA Lugo Consulting Unavailable CHILDS, DR NINFA Lugo Primary Care Unavailable ANGÉLICA SANDERS Admitting Unavailable ANGÉLICA SANDERS Attending Unavailable ANGÉLICA SANDERS Consulting Unavailable MD Ninfa Childs Primary Care Provider MD Ninfa Childs Attending Provider Bharat Singleton Unavailable JAE BLANCAS Attending Unavailable NINFA CHILDS Referring Unavailable MARIE GONZALEZ Attending Unavailable MARIE GONZALEZ Referring Unavailable Ninfa Childs Primary Care Unavailable Self, Referral Attending Unavailable Self, Referral Admitting Unavailable MD Ninfa Childs Primary Care Provider Self, Referral Attending Provider Unavailable HARVEY LÓPEZ Attending Unavailable Unavailable Unavailable Unavailable Allergies Allergy ClassificationReported Allergen(s)Allergy TypeDate of OnsetReaction(s) Facility (7 sources)Topical Dispenser *MEDICAL DEVICES AND SUPPLIES*Propensity to adverse ugtnpxgxo14-67-4462RskgjnuGqqaaiWitness Other (7 sources)Allergies ReconciledPropensity to adverse reactionsPutnam County HospitalPingTank Other (7 sources)Ibuprofen & Diet Manage Prod *ANALGESICS - ANTI-INPropensity to adverse mfiphmxnw91-99-5893YcidndhQbzzmSmartesting Other (7 sources)patient allergy list reviewed by nurse or physiciaPropensity to adverse hytmbqffs05-04-9706Wanhcnm:Fit Steps Other (2 sources)Ibuprofen & Diet Manage Prod *Allergy to -12-4949AgfqiAshtabula General HospitalComment on above:Free Text Allergy: Ibuprofen & Diet Manage Prod *ANALGESICS - ANTI-IN; Onset Date: 05/16/2013 (2 sources)Topical Dispenser *MEDICAL DEVAllergy to uesohjprw19-16-6093ZfdooAshtabula General HospitalComment on above:Free Text Allergy: Topical Dispenser *MEDICAL DEVICES AND SUPPLIES*; Onset Date: 05/16/2013 Medications Current Medications MedicationDrug Class(es)DatesSig (Normalized)Sig (Original)ascorbic acid 1000 mg oral tablet (5 sources)Vitamin CStart: 35-14-9383nhqo 1000 mg by mouth once dailyVitamin C 1,000 mg, Oral, Daily, Refills(s) 0, Prophylaxis Start Date: 07/08/15 Status: OrderedAspir-81 81 MG (10 sources)take 1 tablet by mouth once dailyAspir-81 81 MG 1 tablet Orally Once a day Activeaspirin 81 mg delayed release oral tablet (7 sources)Platelet Aggregation Inhibitor, Nonsteroidal Anti-inflammatory Drug Start: 91-83-3766ganp 1 tablet by mouth once dailyAspirin 81 mg tablet,delayed release (DR/EC) Active 1 TAB PO Daily October 11, 2023 11:00pm FreeTextSi tablet Orally Once a day; Note: Source Status: Taking; Provider: Naz Ocasio ( )Start: 86-24-3206rthp 81 mg by mouth once dailyaspirin 81 mg, Oral, Daily, Refills(s) 0, Blood Thinner Start Date: 07/08/15 Status: Ordered azithromycin 250 mg oral tablet (2 sources)Macrolide AntimicrobialStart: 25-95-3364Mbggswwkztgx 250 MG as directed Orally 2 tabs po today, then 1 tab daily x 4 more days for 5 Apr, ActiveBiotin (5 sources)Start: 89-75-5396xpws 1000 ug by mouth once dailybiotin 1,000 mcg, Oral, Daily, Refills(s) 0, Prophylaxis Start Date: 07/08/15 Status: Ordered Start: 52-63-9424btlyzv See Instructions, Refills(s) 0, Prophylaxis Start Date: 07/08/15 Status: Orderedcarvedilol 3.125 mg oral tablet (14 sources)alpha-Adrenergic Alyse, beta-Adrenergic BlockerStart: 10-12-2023 take 1 tablet by mouth twice daily at mealtimeCarvedilol 3.125 mg tablet Active 1 TAB PO Twice daily October 11, 2023 11:00pm FreeTextSi tablet with food Orally Twice a day; Note: Source Status: Taking; Provider: Naz Ocasio ( )Start: 33-43-1749adui 1 tablet by mouth twice daily at mealtime Carvedilol Active 1 TAB PO Twice daily October 12, 2023 12:00am FreeTextSi tablet with food Orally Twice a day; Note: Source Status: Taking; Provider: Naz Ocasio ( )Start: 12-28-8779qewb 1 tablet by mouth twice dailycarvedilol 3.125 mg Tab 3.125 mg = 1 tab(s), Oral, BID, Refills(s) 0 Start Date: 06/10/22 Status: Orderedtake 1 tablet by mouth every twelve hoursCoreg 3.125 MG 1 tablet with food Orally Twice a day Activecinnamon preparation 500 mg oral tablet (5 sources)Non-Standardized Food Allergenic ExtractStart: 94-39-3629ojui 500 mg by mouth twice dailyCinnamon 500 mg, Oral, BID, Refills(s) 0, Prophylaxis Start Date: 07/08/15 Status: Orderedclopidogrel 75 mg oral tablet (12 sources)P2Y12 Platelet InhibitorStart: 82-78-7017wvel 75 mg by mouth once dailyPlavix 75 mg, Oral, Daily, Refills(s) 0, Blood Thinner Start Date: 07/08/15 Status: OrderedCo Q-10 (5 sources)Start: 91-11-8435txez 100 mg by mouth once dailyCo Q-10 100 mg, Oral, Daily, Refills(s) 0, Prophylaxis Start Date: 07/08/15 Status: OrderedStart: 51-30-6933Mk Q-10 See Instructions, Refills(s) 0, Prophylaxis Start Date: 07/08/15 Status: OrderedCo Q10 Maximum Strength (10 sources)Co Q10 Maximum Strength Activeglucosamine 500 mg oral tablet (3 sources)Start: 58-15-9240dbeu 500 mg by mouth once dailyglucosamine 500 mg, Oral, Daily, Refills(s) 0, Prophylaxis Start Date: 07/08/15 Status: Mdruujf50 hr isosorbide mononitrate 30 mg extended release oral tablet (3 sources)Nitrate VasodilatorStart: 92-30-3211uxbj 30 mg by mouth once daily in the morningImdur 30 mg, Oral, qAM, Refills(s) 0, Chest pain Start Date: 07/08/15 Status: Orderedlisinopril 5 mg oral tablet (14 sources)Angiotensin Converting Enzyme InhibitorStart: 83-78-2114btmf 1 tablet by mouth once dailyLisinopril 5 mg tablet Active 1 TAB PO Daily October 11, 2023 11:00pm FreeTextSi tablet Orally Once a day; Note: Source Status: Taking; Provider: Naz Ocasio ( )Start: 31-33-5673ejvwcoakkc Oral, Daily, Refills(s) 0 Start Date: 06/10/22 Status: Orderedtake 1 tablet by mouth every twenty-four hoursLisinopril 5 MG 1 tablet Orally Once a day Active loratadine 10 mg oral tablet (11 sources)Start: 40-69-2183ygec 1 tablet by mouth once dailyLoratadine 10 mg tablet Active 1 TAB PO Daily October 11, 2023 11:00pm FreeTextSig: TAKE 1 TABLET BYMOUTH EVERY DAY; Note: Source Status: Taking; Refills: 2; Qty: 90 Tablet; Provider: Naz Ocasio ( )take 1 tablet by mouth once daily Loratadine 10 MG TAKE 1 TABLET BY MOUTH EVERY DAY for 90 Activemagnesium oxide 250 mg oral tablet (5 sources)Start: 27-35-1040gwtt 250 mg by mouth once dailymagnesium oxide 250 mg, Oral, Daily, Refills(s) 0, Prophylaxis Start Date: 07/08/15 Status: Ordered meclizine hydrochloride 12.5 mg oral tablet (2 sources)Antiemetictake 1 tablet by mouth every twelve hoursMeclizine HCl 12.5 MG 1 tablet as needed Orally every 12 hrs for 5 days ActiveLopressor (3 sources)beta-Adrenergic BlockerStart: 09-30-1318Mzmvgzqxa Refills(s) 0, High blood pressure Start Date: 07/08/15 Status: Orderednitroglycerin 0.4 mg sublingual powder (5 sources)Nitrate VasodilatorStart: 62-89-2172Zhktxslfi 0.4 mg, SubLingual, PRN Chest pain, Refills(s) 0 Start Date: 07/08/15 Status: Orderedpolyethylene glycol 3350 with electrolytes Oral Pwdr for Adrianne 4000 mL (NuLytely) (3 sources)Start: 98-31-1873jsfx 1 dose by mouth oncepolyethylene glycol 3350 with electrolytes Oral Pwdr for Adrianne 4000 mL (NuLytely) See Instructions, 1EA, Refill(s) 0, PER PHYSICIAN INSTRUCTIONS. PRIOR TO COLONOSCOPY., [facility]/pharmacy #[id number], 175.2, cm, 10/23/21 10:55:00 EDT, Height/Length Dosing, 88.5, kg, 10/23/21 10:55:00 EDT, Weight Dosing Start Date: 10/23/21 Status: Ordered Probiotic Formula (5 sources)Start: 89-22-7375aglm 1 capsule by mouth once dailyProbiotic Formula 1 cap(s), Oral, Daily, Refill(s) 0, Prophylaxis Start Date: 07/08/15 Status: Orderedpseudoephedrine hydrochloride 30 mg oral tablet (5 sources)alpha-Adrenergic AgonistStart: 19-26-4969srdm 30 mg by mouth every six hours as neededSudafed 30 mg, Oral, q6hr, PRN Allergy symptoms, Refills(s) 0 Start Date: 07/08/15 Status: OrderedStart: 60-47-4852Biqypyq Refills(s) 0 Start Date: 07/08/15 Status: OrderedraNITIdine 150 mg oral tablet (3 sources)Histamine-2 Receptor AntagonistStart: 55-11-7412vfcv 150 mg by mouth twice daily as neededranitidine 150 mg, Oral, BID, PRN Control of stomach acid, Refills(s) 0 Start Date: 07/08/15 Status: Orderedsimvastatin 40 mg oral tablet (5 sources)HMG-CoA Reductase InhibitorStart: 62-88-3583zqmy 40 mg by mouth once daily at bedtimeZocor 40 mg, Oral, Once a day (at bedtime), Refills(s) 0, High cholesterol Start Date: 07/08/15 Status: OrderedtraMADol hydrochloride 50 mg oral tablet (20 sources)Opioid AgonistStart: 11-08-2023 End: 75-48-4983smsv 1 tablet by mouth three times daily as needed for pain Tramadol 50 mg tablet Active 50 MG PO Three times daily as needed for pain 80 August 162:45pmStart: 10-13-2023 End: 85-17-1388xkvn 1 tablet by mouth every eight hours as needed for pain Tramadol 50 mg tablet Discontinued 50 MG PO Every 8 hours as needed for pain 90 October 13, 2023 3:41pm November 08, 2023 3:12pmStart: 09-12-2023 End: 59-58-2731hzwp 1 tablet by mouth four times daily as needed for pain Tramadol 50 mg tablet Discontinued 50 MG PO Four times daily as needed for pain 90 September 12, 2023 10:07am October 13, 2023 3:47pmStart: 27-95-1339mgkw 1 tablet by mouth four times daily as neededtraMADol HCl 50 MG TAKE 1 TABLET BY MOUTH 4 TIMES DAILY NEEDED 22 for Jul, ActiveStart: 96-82-5721hcgk 1 tablet by mouth four times daily as neededtraMADol HCl 50 MG TAKE 1 TABLET BY MOUTH 4 TIMES DAILY NEEDED for May, ActiveStart: 12-09-1148qtzd 1 tablet by mouth four times daily as neededtraMADol HCl 50 MG TAKE 1 TABLET BY MOUTH 4 TIMES A DAY NEEDED for Apr, ActiveStart: 93-35-1682isws 1 tablet by mouth four times daily as neededtraMADol HCl 50 MG TAKE 1 TABLET BY MOUTH 4 TIMES A DAY NEEDED for Mar, ActiveStart: 04-17-3529pdfl 1 tablet by mouth four times daily as neededtraMADol HCl 50 MG TAKE 1 TABLET BY MOUTH 4 TIMES A DAY NEEDED for Feb, ActiveStart: 02-10-2023 traMADol HCl 50 MG TAKE 1 TABLET BY MOUTH 4 TIMES A DAY NEEDED Orally qid for 30 days Feb, ActiveStart: 29-74-6631nwtw 1 tablet by mouth four times daily as neededtraMADol HCl 50 MG TAKE 1 TABLET BY MOUTH 4 TIMES A DAY NEEDED for Dec, ActiveStart: 01-90-4350yzao 1 tablet by mouth four times daily as neededtraMADol HCl 50 MG TAKE 1 TABLET BY MOUTH 4 TIMES A DAY NEEDED 22 for November, ActiveStart: 58-16-4934tzen 1 tablet by mouth four times daily as neededtraMADol HCl 50 MG TAKE 1 TABLET BY MOUTH 4 TIMES A DAY NEEDED for Oct, ActiveStart: 94-33-2034nyxzrqgq 50 mg, Oral, PRN as needed for pain, Refills(s) 0 Start Date: 07/08/15 Status: Orderedtretinoin 0.25 mg/ml topical cream (15 sources)RetinoidStart: 10-25-2023 End: 89-06-5497Lbojjedwn 0.025 % cream Active 0 .ROUTE .COMPLEX April 07, 2024 6:37am APPLY TO AFFECTED AREA DAILY AT BEDTIME 30Start: 10-25-2023 End: 33-97-4167Czeeoymdi 0.025 % cream Discontinued 1 APPLIC TOPICAL Daily at bedtime October 24, 2023 11:00pm October 25, 2023 2:59pmTretinoin 0.025 % APPLY TO AFFECTED AREA DAILY AT BEDTIME for 30 ActiveTretinoin 0.025 % APPLY TO AFFECTED AREA EVERYDAY AT BEDTIME for 30 Activeubidecarenone 10 mg oral capsule (2 sources)Start: 48-68-1084Qgxudqtw Q10 (Co Q-10) 10 mg capsule Active 10 MG PO Three times daily October 11, 2023 11:00pmvitamin B12 (5 sources)Vitamin H22Qzsjq: 64-07-0794bvnz 1000 ug by mouth once dailyVitamin B12 1,000 mcg, Oral, Daily, Refills(s) 0, Prophylaxis Start Date: 07/08/15 Status: OrderedStart: 36-05-2830Dpmjsvn B12 See Instructions, Refills(s) 0, Prophylaxis Start Date: 07/08/15 Status: OrderedVitamin D3 (5 sources)Start: 95-92-7419Litdjum D3 2,000 International_Unit, Oral, Daily, Refills(s) 0, Prophylaxis Start Date: 07/08/15 Status: Ordered Completed/Discontinued Medications MedicationDrug Class(es)DatesSig (Normalized)Sig (Original)amoxicillin 500 mg oral tablet (2 sources)Penicillin-class AntibacterialStart: 12-30-2023 End: 75-50-8832lmuh 1 tablet by mouth three times dailyAmoxicillin 500 mg tablet Discontinued 500 MG PO Three times daily December 29, 2023 11:00pm May 24, 2024 2:50pmbaclofen 10 mg oral tablet (9 sources)gamma-Aminobutyric Acid-ergic AgonistStart: 34-68-1653qzbw 1 tablet by mouth every eight hours at mealtime as needed for pain and muscle spasms Baclofen 10 MG 1 tablet with food or milk Orally every 8 hours as needed for back pain and muscle spasm, may cause fatigue, avoid driving/alcohol for 10 days Oct, Not-Taking/PRNdoxepin 6 mg oral tablet (1 source)Tricyclic AntidepressantStart: 05-24-2024 End: 37-19-1414pzam 1 tablet by mouth once daily at bedtime as needed for sleep Doxepin 6 mg tablet Discontinued 6 MG PO Daily at bedtime as needed for sleep May 24, 2024 12:00am July 02, 2024 8:58ampredniSONE 20 mg oral tablet (9 sources)Start: 94-39-3512moww 1 tablet by mouth every twelve hourspredniSONE 20 MG 1 tablet with food or milk Orally Twice a day for 7 days Oct, Not-Taking/PRNzolpidem tartrate 5 mg oral tablet (20 sources)gamma-Aminobutyric Acid-ergic AgonistStart: 09-14-2023 End: 05-12-3300qahc 1 tablet by mouth once daily at bedtime as neededZolpidem 5 mg tablet Discontinued 5 MG PO Daily at bedtime as needed for insomnia May 24, 2024 3:14pm May 24, 2024 3:16pmStart: 40-08-3503Cbkcigtv Tartrate 5 MG TAKE 1 TABLET BY MOUTH AT BEDTIME NEEDED FOR 90 DAYS for 30 Jul, ActiveStart: 40-17-8042ltya 1 tablet by mouth every twenty-four hours Ambien 5 MG 1 tablet at bedtime as needed Orally Once a day for 90 days Feb, ActiveStart: 32-11-3925chga 1 tablet by mouth once daily at bedtime as needed for sleepZolpidem Tartrate 10 MG TAKE 1 TABLET BY MOUTH EVERY DAY AT BEDTIME NEEDED FOR SLEEP for 15 Oct, ActiveStart: 49-14-5228eote 0.5 tablet by mouth once daily as neededAmbien 10 mg, Oral, Once a day (at bedtime), PRN Insomnia, take 1/2 tablet as needed, Refills(s) 0 Start Date: 07/08/15 Status: Orderedtake 1 tablet by mouth every twenty-four hoursAmbien 5 MG 1 tablet at bedtime as needed Orally Once a day Active Problems Active Problems Problem ClassificationProblemDateDocumented DateEpisodic/ChronicChronic obstructive pulmonary disease and bronchiectasis (1 source)Bronchitis, not specified as acute or chronicEpisodicCoronary atherosclerosis and other heart disease (20 sources)Atherosclerotic heart disease of [place] coronary artery without angina pectoris; Translations: [Atherosclerosis of coronary artery without angina pectoris]Onset: 74-42-4781OyrxpzhWkavssbv of mouth; excluding dental (10 sources)Sialoadenitis; Translations: [Sialoadenitis, unspecified]Onset: 116717-75-7163EgrfyxaaKktgrvbjo of lipid metabolism (11 sources)Mixed hyperlipidemia; Translations: [Hyperlipidemia]Onset: 51-49-3132HprbrtcQyojqniqnj disorders (8 sources)Esophageal reflux finding; Translations: [Esophageal reflux]Onset: 49-63-9813PahtkygKmxjrwcnc hypertension (19 sources)Essential hypertension; Translations: [Essential (primary) hypertension]Onset: 72-92-1134ZliantxBnnbx valve disorders (2 sources)Nonrheumatic mitral (valve) insufficiency; Translations: [Nonrheumatic mitral (valve) insufficiency]Onset: 54-06-4610VckazvyLpcavyxditza with complications and secondary hypertension (3 sources)Hypertensive heart disease without heart failure; Translations: [HTN HEART DISEASE W/O HEART FAIL]Onset: 78-19-4136BgonsuiZyjqawskppxz; infection of eye (except that caused by tuberculosis or sexually transmitteddisease) (8 sources)External hordeolum; Translations: [Hordeolum externum right upper eyelid]EpisodicMalaise and fatigue (8 sources)Fatigue; Translations: [Other fatigue]EpisodicNonspecific chest pain (1 source)Other chest painEpisodicNutritional deficiencies (8 sources)Vitamin D deficiency; Translations: [Vitamin D deficiency, unspecified]Onset: 11-07-2606JtzjykdHaoqnuwnjpxyiu (8 sources)Osteoarthritis; Translations: [Unspecified osteoarthritis, unspecified site]Onset: 63-76-2202YnziikbGsrec and unspecified benign neoplasm (6 sources)History of polyp of colon; Translations: [Personal history of colonic polyps]Onset: 92-28-6926PrgilasgSgxuo connective tissue disease (5 sources)Pain in right leg; Translations: [PAIN IN RIGHT LEG]Onset: 05-07-2022 EpisodicOther connective tissue disease (7 sources)Pain in right lower limb; Translations: [Pain in right leg]Episodic Other infections; including parasitic (8 sources)H/O: infectious disease; Translations: [Personal history of other infectious and parasitic diseases]EpisodicOther lower respiratory disease (8 sources)Chronic cough; Translations: [Chronic cough]EpisodicOther nutritional; endocrine; and metabolic disorders (16 sources)Body mass index 25-29 - overweight; Translations: [Body mass index (BMI) 28.0-28.9, adult]Onset: 95-08-4119NdrrnlotMbfvi nutritional; endocrine; and metabolic disorders (8 sources)Overweight; Translations: [Overweight]EpisodicOther screening for suspected conditions (not mental disorders or infectious disease) (1 source)Encounter for screening mammogram for malignant neoplasm of breast EpisodicOther skin disorders (8 sources)Actinic keratosis; Translations: [Actinic keratosis]EpisodicPulmonary heart disease (2 sources)Pulmonary hypertension, unspecified; Translations: [Pulmonary hypertension, unspecified]Onset: 64-82-2253XcuksbsQvctisuq codes; unclassified (2 sources)Family history of malignant neoplasm of digestive organ; Translations: [Family history of malignantneoplasm of digestive organs]Onset: 15-00-4061PhvllmrdFrmobiux codes; unclassified (5 sources)Family history of cancer of qyvnr26-78-2271BnunlopxWmcuijgv codes; unclassified (1 source)Asymptomatic menopausal stateEpisodicResidual codes; unclassified (15 sources)Postmenopausal state; Translations: [Asymptomatic menopausal state] Onset: 71-34-0180ChigqzxbNjgzrnrm codes; unclassified (1 source)Family history of diabetes mellitus; Translations: [Family history of diabetes mellitus]EpisodicResidual codes; unclassified (7 sources)Family history of diabetes mellitus; Translations: [Family history of diabetes mellitus]EpisodicResidual codes; unclassified (2 sources)Insomnia; Translations: [Insomnia, unspecified]29-80-7477Qofctngn Residual codes; unclassified (1 source)Insomnia, unspecified; Translations: [Insomnia, unspecified]05-24-2024 EpisodicSpondylosis; intervertebral disc disorders; other back problems (9 sources)Other cervical disc degeneration, unspecified cervical region; Translations: [Degeneration of cervical intervertebral disc]Onset: 11-23-2018 ChronicSpondylosis; intervertebral disc disorders; other back problems (13 sources)Low back pain; Translations: [Lumbago]Onset: EpisodicUnclassified (1 source)Asymptomatic postmenopausal status; Translations: [Asymptomatic postmenopausal status]Onset: 12-01-2016 Past or Other Problems Problem ClassificationProblemDateDocumented DateEpisodic/ChronicAbdominal pain (8 sources)Epigastric pain; Translations: [Epigastric pain]Onset: 05-16-2013 EpisodicAllergic reactions (8 sources)Contact dermatitis due to plants; Translations: [Unspecified contact dermatitis due to plants, except food]Onset: 03-42-7088TykamealHogapcdhbwwsj symptoms and ill-defined conditions (8 sources)Dysuria; Translations: [Dysuria]Onset: 00-50-0688XlwpnjitQuanu connective tissue disease (8 sources)Enthesopathy of hip region; Translations: [Enthesopathy of hip region]Onset: 86-91-7515EslsryfvWeqmj non-traumatic joint disorders (8 sources)Arthralgia of the lower leg; Translations: [Pain in unspecified knee] Onset: 31-79-7608EafxcsnmMktve non-traumatic joint disorders (8 sources)Arthralgia of the ankle and/or foot; Translations: [Pain in joint, ankle and foot]Onset: 39-16-9490XfticwezVkpje upper respiratory infections (8 sources)Acute pharyngitis; Translations: [Acute pharyngitis, unspecified] Onset: 81-42-1963BcwlpnqaPxmrdrxxbmro (1 source)Exposure to 2019 novel coronavirus; Translations: [Contact with and (suspected) exposure to COVID19]Unclassified (2 sources)Lumbar pain M54.50 Results Test NameValueInterpretationReference FanhhEfmsihin91jx 85-36-773927Ntrtsdkji lab results from 09/14/2024: LDL is too high 122, the goal in a person with history of CAD 70 or below therefore she should take simvastatin every day and recheck lipids and ALT AST in 2 months Patient notified via email. I asked him to email me back to send lab orders if she's agreeable.[facility] HospitalOffice Visiton 81-90-8402Siisej-up [id number] Belia Moore 1955 F Date Provider Department Center 08/14/2024 [id number]-JGLGNKHARVEY LÓPEZ SHEKHAR Prakash [facility] Family History Problem Relation Age of Onset Diabetes Mother Coronary artery disease Mother Kidney disease Mother Coronary artery disease Father Diabetes Brother Other Brother Family Status - Relation Status Age at Mother Father Brother Level of Service:34080 [place] OFFICE/OUTPATIENT ESTABLISHED MOD MDM 30 MIN Reason for Visit and Comments: Hypertension [352631] - She's only been taking lisinopril a few times a week because she forgets to take it at noon. Had echo and labs in November 2022. Hyperlipidemia [182] - Only takes simvastatin twice a week now. Coronary Artery Disease [187] - No recent labs/imaging. She denies chest pain, SOB, and palpitations.[facility] screening mammo BI w/CADon 89-53-4343PX screening mammo BI w/CADSUM[facility] [place] [address] [place], [place] [id number] Mammography Report Signed Patient: Belia Moore MR#: [id number] 87 : 1955 Acct:[id number] Age/Sex: 69 / F ADM Date: 04/11/24 [facility]: [facility] Room: Type: [facility] Attending Dr: Referral Self Copies to: Ninfa [...] Tejas Calvillo M.D.04/11/2024 3:30 PM Dictation Location: [facility] Transcribed By: [facility] 04/11/24 1390 Dictated By: Tejas Calvillo II, MD 04/11/24 1526 Signed By: 04/11/[address] [place] [address] Physician GroupCBC AUTO DIFFon 41-31-0517VUHR # 0.0 103/ulNormal0.0-0.1[facility] HospitalComment on above:Performed By: #### DATCBC #### [facility] [address] [address] [address] Lisa BalderasBasophils/100 WBC (Bld)0.9 %Normal0.2-2.0[facility] Comment on above:Performed By: #### DATCBC #### [facility] [address] [address] [address] Lisa Manzo #0.1 103/ulNormal0.0-0.7[facility] SystemComment on above: Performed By: #### DATCBC #### [facility] [address] [place] [address] Dr. Lisa Ryanosinophils/100 WBC (Bld)2.8 %Normal0.9-7.0[facility] Comment on above:Performed By: #### DATCBC #### [facility] [address] [address] [address] Lisa Ryanrythrocyte distribution width (RBC) [Ratio]12.8 %Qawhax89.0-15.0 [facility] SystemComment on above:Performed By: #### DATCBC #### [facility] [address] [place] [address] Dr. Lisa BalderasHematocrit (Bld) [Volume fraction]44.8 %Cxdxqm58.0-48.0[facility] HospitalComment on above:Performed By: #### DATCBC #### [facility] [address] [address] [address] Lisa BalderasHemoglobin (Bld) [Mass/Vol]14.2 g/xMXnfypx80.0-16.0[facility] SystemComment on above:Performed By: #### DATCBC #### [facility] [address] [place] [address] Dr. Lisa Villalobos #0.00 10e3/ulNormal0.00-0.03The [facility] SystemComment on above:Performed By: #### DATCBC #### [facility] [facility] [address] [place] [address] Dr. Lisa Villalobos %0.0 %Normal0.0-0.5The Trinity Health SystemComment on above: Performed By: #### DATCBC #### [facility] [address] [place] [address] Dr. Lisa You #1.5 103/ulNormal1.2-3.8The Trinity Health SystemComment on above:Performed By: #### DATCBC #### [facility] [address] [place] [address] Dr. Lisa Olivarezhocytes/100 WBC (Bld)34.3 %Xdjesq39.5-60.0The [facility] Health SystemComment on above:Performed By: #### DATCBC #### [facility] [address] [place] [address] Dr. Lisa Valentino (RBC) [Entitic mass]28.3 atAtqmpm04.7-34.0The [facility] Health SystemComment on above:Performed By: #### DATCBC #### [facility] [address] [place] [address] Dr. Lisa Valentino (RBC) [Mass/Vol]31.7 g/oUDzjnaj90.9-35.2The [facility] Health SystemComment on above:Performed By: #### DATCBC #### [facility] [address] [place] [address] Dr. Lisa Valentino (RBC) [Entitic vol]89.4 hLThmcmu68.0-99.0The [facility] Health SystemComment on above:Performed By: #### DATCBC #### [facility] [address] [place] [address] Dr. Lisa Cheng #0.3 103/ulNormal0.3-0.8The [facility] Health SystemComment on above:Performed By: #### DATCBC #### [facility] [address] [address] [address] Lisa Daveocytes/100 WBC (Bld)7.2 %Normal1.7-12.0[facility] Comment on above:Performed By: #### DATCBC #### [facility] [address] [place] [address] Dr. Lisa EspinozaUT #2.4 103/ulNormal1.4-6.5The [facility] Health SystemComment on above:Performed By: #### DATCBC #### [facility] [address] [place] [address] Dr. Lisa Espinozautrophils/100 WBC (Bld)54.8 %Upyczs56.0-75.0The [facility] Health SystemComment on above:Performed By: #### DATCBC #### [facility] [address] [place] [address] Dr. Lisa BalderasPlatelet mean volume (Bld) [Entitic vol]9.8 fLNormal9.5-13.5The [facility] Health SystemComment on above:Performed By: #### DATCBC #### [facility] [address] [place] [address] Dr. Lisa BalderasPLT238 103/arQhftio452-448Nan [facility] SystemComment on above: Performed By: #### DATCBC #### [facility] [address] [place] [address] Dr. Lisa BalderasRBC5.01 106/ulNormal4.20-5.40The [facility] Health SystemComment on above:Performed By: #### DATCBC #### [facility] [address] [place] [address] Dr. Lisa BalderasWBC4.3 103/ulNormal4.0-11.0The [facility] SystemComment on above: Performed By: #### DATCBC #### [facility] [address] [place] [address] Dr. Lisa Ramos - TSHon 17-92-9573RKC5.534 uIU/mLNormal0.358-3.740The [facility] Health SystemComment on above:Performed By: #### DATTSH, DATBMP #### [facility] [address] [address] [address] Lisa Crump [facility] CenterComment on above: Result Comment: <0.34 UIU/ml HYPERTHYROID 0.34-5.60 UIU/ml EUTHYROID >5.60 UIU/ml HYPOTHYROIDPerformed By: #### DATTSH, DATBMP #### [facility] [address] [address] [address] Lisa Ramos- BMP WITH LIPIDon 23-76-8365Uyksr gap [Moles/Vol]11.7 mmol/L NormalThe [facility] on above:Performed By: #### DATTSH, DATBMP #### [facility] [address] [place] [address] Dr. Lisa BalderasCalcium [Mass/Vol]9.5 mg/dLNormal8.5-10.1[facility] Comment on above:Performed By: #### DATSAMEUL, DATBMP #### [facility] [address] [address] [address] Lisa BalderasChloride [Moles/Vol]105 mmol/QLtmzmk40-236Ttn [facility] Comment on above:Performed By: #### DATTSH, DATBMP #### [facility] [address] [address] [address] Lisa BalderasCholesterol [Mass/Vol]214 mg/dLCritically high<=200[facility] on above:Performed By: #### DATTSH, DATBMP #### [facility] [address] [address] [address] Lisa BalderasCholesterol in HDL [Mass/Vol]69 mg/dLCritically luet70-89Yem The [facility] Hospitalment on above:Performed By: #### DATTSH, DATBMP #### [facility] [address] [address] [address] Lisa Aroraesterol in LDL [Mass/Vol]119.0 mg/dLNormalThe Olinda HospitalComment on above:Performed By: #### DATSAMUEL DATBMP #### [facility] [address] [place] [address] Dr. Lisa BalderasCO2 [Moles/Vol]30.8 mmol/ROjabuv72.0-32.0[facility] Comment on above:Performed By: #### DATSAMUEL DATBMP #### [facility] [address] [place] [address] Dr. Lisa BalderasCreatinine [Mass/Vol]0.82 mg/dLNormal0.55-1.02[facility] HospitalComment on above:Performed By: #### EMELI DATBMP #### [facility] [address] [place] [address] Dr. Lisa RyanGFR-AF PAPUA NEW GUINEAN>60Normal>=60The [facility] Health SystemComment on above:Performed By: #### EMELI DATBMP #### [facility] [address] [place] [address] Dr. Lisa RyanGFR-NON AF PAPUA [place] GUINEAN>60Normal>=60[facility] HospitalComment on above:Performed By: #### EMELI DATBMP #### [facility] [address] [place] [address] Dr. Lisa BalderasGlucose [Mass/Vol]95 mg/oXCbtsya01-090Oyg[facility]c [facility] Comment on above:Performed By: #### DATSAMUEL DATBMP #### [facility] [address] [place] [address] Dr. Lisa BalderasHDDian NORMAL> or = 60 mg/dl - LOW CARDIOVASCULAR RISK <40 mg/dl - HIGH CARDIOVASCULAR RISKShelby Memorial HospitalComment on above:Performed By: #### DATTSJim, DATBMP #### [facility] [address] [place] [address] Dr. Lisa BalderasLDL CALC NORMALSEE BELOWShelby Memorial HospitalComment on above:Result Comment: <100 mg/dl OPTIMAL 100 - 129 mg/dl NEAR OR ABOVE OPTIMAL 130 - 159 mg/dl BORDERLINE HIGH 160 - 189 mg/dl HIGH >190 mg/dl VERY HIGH Performed By: #### EMELI DATBMP #### [facility] [address] [place] [address] Dr. Lisa BalderasPotassium [Moles/Vol]4.5 mmol/LNormal3.5-5.1The [facility] Comment on above:Performed By: #### EMELI DATBMP #### [facility] [address] [place] [address] Dr. Lisa BalderasSodium [Moles/Vol]143 mmol/LHlajdc535-543Mac [facility] Comment on above:Performed By: #### EMELI DATBMP #### [facility] [address] [place] [address] Dr. Lisa BalderasTriglyceride [Mass/Vol]130 mg/dLNormal<=150The [facility] Comment on above:Performed By: #### EMELI DATBMP #### [facility] [address] [place] [address] Dr. Lisa BalderasUrea nitrogen [Mass/Vol]13.0 mg/dLNormal7.0-18.0[facility] HospitalComment on above:Performed By: #### EMELI DATBMP #### [facility] [address] [place] [address] Dr. Lisa BalderasUrea nitrogen/Creatinine [Mass ratio]15.9 mg/mgNoGerman HospitalComment on above:Performed By: #### EMELI DATBMP #### [facility] [address] [place] [address] Dr. Lisa BalderasVLDL CALC26.0 mg/dLNoGerman HospitalComment on above: Performed By: #### EMELI DATBMP #### [facility] [address] [place] [address] Dr. Gonzalez ChangECHOCARDIO M/2D COMPLETEon 32-05-4477GFFPNJTLYB M/2D COMPLETE Patient: BLEIA MOORE Exam Date: 11/12/2022 : 1955 Gender:F Ordering : ANGÉLICA SANDERS [facility] Admission #: [id number] Family : Order #: [id number] CLICK HERE TO VIEW EXAM ECHOCARDIOGRAM REPORT [...] by: Alejandra Haq M.D. on 11/12/2022 at 13:01[facility] HospitalPatient Letter [facility] 46-43-0198Leeydcm Letter [facility] June 23, 2022 BELIA MOORE [address] [place] [address] [place] [address] BELIA MOORE 1955 Below is a summary [...] a reminder letter prior to your next duedate. [facility] [phone] 77-93-2436Rbtxmfsuq From: Aliza Good I To: LINDA - Reminders/Recalls; Sent: 06/23/2022 15:15:34 EST Show up: 05/11/2027 15:15:00 EDT Subject: Colonoscopy Recall Due Date/Time: 06/10/2027 15:15:00 EST Reminder/Recall Repeat colonoscopy in 5 year(s) due to hx of colon polyps (2026).[facility] HospitalIntraOperative Documentson 21-62-8966AmvmrUglbsbkus [id number]#1.00CD:127[facility] HospitalCoding Summary.on 47-43-4489Lykiks Summary. CD:[id number]:[id number]+PGhlYWQ+EY4TOLFjU45rzUJehE6JV2pUBM4DZOIRWNGIWH2SZJ1ln EY2TGliX2SztiHn [file] ZTog (more content not included)...[facility] HospitalMain OR Intraoperative Recordon 92-41-5586Gkxh OR Intraoperative RecordIntraOp Document Type FT Summary Primary Physician: Naresh HAYNES MD Finalized Date/Time: 06/14/22 11:52:19 Pt. Name: BELIA MOORE/Sex: 1955 Female Med Rec #: [id number] Physician: Naresh HAYNES MD Financial #: [id number] Pt. Type: O Room/Bed: / Admit/Disch: 06/10/22 [...] RN, Justin Camacho Role Performed Anesthesiologist of [employer]eder - Primary Scrub - Primary Record Time In 06/10/22 09:26:00 06/10/22 09:26:00 06/10/22 09:26:00 Time Out 06/10/22 09:45:00 06/10/22 09:45:00 06/10/22 09:45:00 Procedure COLONOSCOPY(.) COLONOSCOPY(.) COLONOSCOPY(.) Comments Last Modified By: Yumiko Quinn RN, RN, Yumiko Perez RN 06/10/22 09:45:17 F [...] No Time Out Balaji Zarco Jr., DO, Dendinger RN, Pardeep Mccollum Micala E, Naresh HAYNES MD Time Out [...] and tissue Entry 1 Skin Integrity Intact, [place], Warm, and Skin Abnormality No Dry Outcomes [...] Resting at Side Righ (more content not included)...NormalUk HealthcareConsenton [id number]#1.00CD:127Radha Llanos [facility] MarylandDischarge Instructionson 45-62-8864Cnsgcrjig [id number]#1.00CD:127[facility] HospitalIntraOperative Documentson 61-31-9288EetwzDvhllbfij [id number]#1.00CD:Maria EugeniaBlanchard Valley Health System [facility] Valley HospitalPostoperative Documentson 69-87-2915Gmpguashrkipm Documents [id number]#1.00CD:127[facility] HospitalConsent for Treatmenton 42-00-6793Cdiyuxb for Treatment [id number]#1.00CD:127[facility] HospitalEndoscopic Procedure Report - Otheron 84-35-1226Hghbdrlmoe Procedure Report - OtherPatient: BELIA MOORE Age: 67 years Sex: Female [...] over. Family history of colon cancer. Medications Anticoagulant/antiplatelet None. ASA Classification: Class II. . Procedure [...] Moderate nonbleeding internal hemorrhoids Images Procedure images: Rec1_hd_video__[id number]_[id number].jpg Rec1_hd_video__T09_39_46_883.jpg Rec1_hd_video__T09_33_13_155.jpg Rec1_hd_video__T09_38_10_773.jpg . Post-Procedure Complications: none. Estimated blood loss: [...] current medications. Return to activities:: After 24 hours.[facility] Valley HospitalComment on above:Result Comment: Electronically Signed By: RAMSEY BALDERRAMA, Naresh\.br\Date and Time Signed: 06/10/22 09:46 ESTOther Comment: Missing Attachment - attachment storage system not supported [id number] Can be viewed in source system Missing Attachment - attachment storage system not supported [id number] Can be viewed in source systemMissing Attachment - attachment storage system not supported [id number] Can be viewed in source systemMissing Attachment - attachment storage system not supported [id number] Can be viewed in source systemMain OR PACU I Recordon 04-28-5642Rjlp OR PACU I RecordPACU Phase I Document Type FT Summary Primary Physician: Naresh HAYNES MD Finalized Date/Time: 06/10/22 10:19:47 Pt. Name: BELIA MOORE/Sex: 1955 Female Med Rec #: [id number] Physician: Naresh HAYNES MD Financial #: [id number] Pt. Type: O Room/Bed: / Admit/Disch: 06/10/22 [...] I Outcomes Met? Yes Last Modified By: KENTRELL MEHTA RN 06/10/22 10:19:35 Post-Care Text: The patient demonstrates knowledge of the expected response to the operative or invasive procedure The patient's care is consistent with the individualized perioperative plan of care The patient's rightto privacy is maintained The patient's value system, [...] with or improved from baseline levels established preoperativelyThe patient's cardiovascular status is consistent with or improved from baseline levels established preoperatively The patient's cardiovascular status is consistent with or improved from baseline levels established preoperatively The patient demonstrates and/or reports adequate pain control throughout the perioperative period The patient received appropriate medication(s), safely administered during the perioperativeperiod Acuity Level PACU I FT Entry 1 Start Time 06/10/22 09:46:00 Stop Time 06/10/22 10:16:00 Acuity Level Acuity Level I Last Modified By: KENTRELL MEHTA RN 06/10/22 10:19:44 Finalized By: KENTRELL MEHTA RN Document Signatures Signed By: KENTRELL MEHTA RN 06/10/22 10:19NoUC [facility] Hospitalitor Recordon 10-31-2227Psmjfxv Record [id number]#1.00CD:127[facility] [id number]#1.00CD:127NoOur Lady of Mercy HospitalProgress Note-Physicianon 60-70-2766Vfrexxpt Note-PhysicianPatient: BELIA MOORE Age: 67 years Sex: Female : 1955 Associated Diagnoses: None Author: Balaji Zarco Jr., DO Postoperative Information Post Operative Note: Post Anesthesia Care Unit. Anesthetic utilized: General. Health Status Allergies: Allergic Reactions (Selected) No Known Allergies Problem list: All Problems Family history of colon cancer / SNOMED CT 260652186 / Confirmed History of colon polyps / SNOMED CT 1286052523 / Confirmed Physical Examination Vital Signs 06/10/2022 [...] anesthetic complications noted. Plan Transfer/ Discharge: Condition stable.[facility] HospitalComment on above:Result Comment: Electronically Signed By: Balaji Zarco Jr., DO\.br\Date and Time Signed: 06/10/22 11:57 ESTProgress Note-PhysicianPatient: BELIA MOORE Age: 67 years Sex: Female [...] glycol 3350 with electrolytes Oral Pwdr for Adrinane 4000 mL (NuLytely): See Instructions, 1 EA, Refill(s) 0, PER PHYSICIAN INSTRUCTIONS. PRIOR TO COLONOSCOPY., [facility]/pharmacy #[id number], 175.2, cm, 10/23/21 10:55:00 EDT, Height/Length [...] Mother Cardiac arrest Father Procedure history: Colonoscopy (165003615) on 07/09/2015 at 60 Years. Social History Social & Psychosocial Habits Tobacco 10/23/2021 Tobacco Use: Never (less than 100 in l Smokeless tobacco use: Never . Physical Examination Respiratory: Lungs are clear to auscultation. Cardiovascular: Regular rhythm. Plan [place] [employer]esthesi[employer] (ASA) physical status classification: Class III. Anesthetic Preoperative Plan Anesthesia: General. . Anesthetic plan, risks, benefits, and alternatives discussed with the patient and/or family. Patient verbalized understanding.[facility] HospitalComment on above:Result Comment: Electronically Signed By: Balaji Zarco Jr., DO.ida\Date and Time Signed: 06/10/22 08:09 ESTCoding Summary.on 56-41-3741Dlzzcp Summary. CD:[id number]:[id number]+PGhlYWQ+RJ7DXDQdG70luVVbzB4ZV2aCSS7YLLCWIXPDHJ2CUR4ek BS6QBnaB8BbdtIc [file] OiBj (more content not included)...[facility] HospitalCOVID-19 ([facility])on 86-07-6901Qnhabkaloq Instrument81 Stone StreetComment on above:Performed By: #### [id number] ####Llanos [facility] Rxuqijzzvb538 Turnerdelano Boone [id number]-JiR-2 (COVID-19) RNA HENRRY+probe Ql (Resp)Not detectedNormalNot [facility] Comment on above:Result Comment: This test result should be correlated with clinical presentations and medical history by a healthcare provider to determine its clinical significance. This assay was performed by a reverse transcriptase real-time polymerase chain reaction (rt PCR) method on the [employer] system. This test has been authorized only [...] (1), unless authorization is terminated or revoked sooner.Performed By: #### [id number] ####[address] [id number]-TuF-3 (COVID-19) RNA HENRRY+probe Ql (Unsp spec)PassCincinnati Shriners HospitalComment on above:Performed By: #### [id number] ####[address] [id number] source Nom (Unsp spec)NasalBlanchard Valley Health System [facility] Valley HospitalComment on above:Performed By: #### [id number] ####[address] [id number] for Treatmenton 00-46-5579Ucmwjyg for Treatment [id number]#1.00CD:[address] [place], [place] [address]COVID-19 ([facility])on 43-71-4386VAXFWAUL TO INTENSIVE CARE UNIT FOR CONDITION OF INTEREST:FIND:PT:UnknownBlanchard Valley Health System [facility] Valley HospitalComment on above: Performed By: #### [id number] ####[address] [id number] IN A HEALTHCARE SETTING:FIND:PT:Unknown [facility] Valley HospitalComment on above:Performed By: #### [id number] ####[address] [facility] [id number] TEST FOR CONDITION OF INTEREST:FIND:PT:[facility] Comment on above:Performed By: #### [id number] ####[address], [place]RVM SYMPTOMS RELATED TO CONDITION OF INTEREST:FIND:PT:UnknownrmCrystal Clinic Orthopedic CenterComment on above: Performed By: #### [id number] ####[facility] [address] [place], [place]HOSPITALIZED FOR CONDITION OF INTEREST:FIND:PT: [facility] HospitalComment on above:Performed By: #### [id number] ####[facility] [address] [place], [place] [address]DNEBUTMJO STATUS:FIND:PT:UnknownBlanchard Valley Health System [facility] Valley HospitalComment on above:Performed By: #### [id number] ####[facility] [address] [place], [place]RESIDES IN A [facility] CARE SETTING:FIND:PT:[facility] HospitalComment on above: Performed By: #### [id number] ####[address] [place], [place]Consent for Procedure/Surgeryon 29-35-9941Jtauyxa for Procedure/[id number]#1.00CD:127Normal Uk HealthcareAmbulatory Visit Summaryon 59-85-0675Elnnvkeogz Visit Summary BELIA MOORE :1955 Visit Date:10/23/2021 Ambulatory Visit Instructions Your Diagnosis History of colon polyps Family history of colon cancer Your Care Team Attending Physician - Kayli Miller CNP Primary Care Physician - NINFA CHILDS MD This Is Your Medications List polyethylene glycol 3350 with electrolytes (polyethylene glycol 3350 with electrolytes Oral Pwdr for Adrianne 4000 mL (NuLytely)) Contact prescribing physician if questions or concerns ascorbic acid (Vitamin C) aspirin bifidobacterium-lactobacillus (Probiotic Formula) biotin cholecalciferol (Vitamin D3) cinnamon [...] PHYSICIAN INSTRUCTIONS. PRIOR TO COLONOSCOPY. Pickup at [facility]/pharmacy #[id number] Unchanged ascorbic acid (Vitamin C) 1,000 Milligram By Mouth Every day Contact prescribing physician if questions or concerns Unchanged aspirin 81 Milligram By Mouth Every day Contact prescribing physician if questions or concerns Unchanged bifidobacterium-lactobacillus (Probiotic Formula) 1 Capsules By Mouth Every day Contact prescribing physician if questions or concerns Unchanged biotin See instructions Contact prescribing physician if questions or concerns Unchanged cholecalciferol (Vitamin D3) 2,000 International unit By Mouth Every day Contact prescribing physician if questions or concerns Unchanged cinnamon (Cinnamon) 500 Milligram By Mouth 2 times a day Contact prescribing physician ifquestions or concerns Unchanged clopidogrel (Plavix) 75 Milligram [...] physician if questions or concerns Pharmacy Information [facility]/pharmacy #[id number]: [address], [place] [id number] [phone] Allergies No Known Allergies Problems Ongoing - [...] a health care provid (more content not included)...NormalFisher [facility]c Western MarylandConsent for Procedure/Surgeryon 06-51-5594Wevkiab for Procedure/[id number]#1.00CD:127Normal Viet [facility] MarylandGastroenterology Office/Clinic Noteon 10-23-2021 Gastroenterology Office/Clinic NoteChief Complaint colonoscopy HPI 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 female previously [...] revealed normal esophagus, small hiatal hernia with mildantral erythema, normal duodenum, stomach biopsy revealed negative for H. pylori. Patient overdue for colonoscopy. Family history of colon cancer: Paternal uncle. Family history of colon polyps: Denies. Personal history of colon cancer: Denies. Personal history of colon polyps: Yes, see above. Takes aspirin daily. Patient with hx. 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 hx. NE s/p cardiac stent in 2013- follows with [...] [id number], 175.2, cm, 10/23/21 10:55:00 EDT, Height/LengthDosing, 88.5, kg, 10/23/21 10:55:00 EDT, Weight Dosing Follow-up With When Contact Information Kayli Miller CNP Within 2 to 4 weeks [...] mellitus type 2: Mother. Diverticulitis of colon: Mother.[facility] Valley HospitalComment on above:Result Comment: Electronically Signed By: Kayli Miller CNP\.br\Date and Time Signed: 10/23/21 11:11 EDTPatient Educationon 52-85-3099Dqcudbr EducationRadiology Colonoscopy, Adult A colonoscopy is an exam [...] including vitamins, herbs, eye drops, creams, and jvms-teg-xeydzcq medicines. ? Any problems you or family [...] drink anything starting 2 hours before the procedure,or within the time period that your health [...] flexible tube. The tube will have a cameraand a light on the end. ? The [...] to the air t (more content not included)...[facility] Vital Signs Date TimeVital SignValuePerforming IgttxjaizMptvewnv23-39-1216 15:07-0500Body szmovs549.26 cmSelect [facility] [place]02-[facility]-2025 15:07-0500Body mass index (BMI) [Ratio]29.8 kg/o1VmbwusedtSelect Medical Specialty [facility] [place]02-11-2025 15:07-0500Body aflqta41.62 kgSelect Medical Specialty [facility] [place]02-11-2025 15:07-0500Diastolic blood grfsnuwd85 mm[Hg][facility] 08-21-2024 15:07-0500Heart rate65 /[facility] 08-21-2024 15:07-0500Systolic blood kgygrjwv183 mm[Hg][facility]11-14-2024 14:47-0500Body .26 cmSelect [facility]ty [facility] [place]11-14-2024 14:47-0500Body mass index (BMI) [Ratio]29.8 kg/u3WmpxwipwtSelect Medical Specialty [facility] [place]11-14-2024 14:47-0500Body pjgiap24.62 kgSelect Medical Specialty [facility] [place]11-14-2024 14:47-0500Diastolic blood mnvbtbay98 mm[Hg] [facility]11-14-2024 14:47-0500Heart rate73 /[facility]11-14-2024 14:47-0500Systolic blood xxrmhaym632 mm[Hg] [facility]10-17-2023 11:45-0400Body .26 cmNinfa Childs Other [place] [employer] Other 056633-51-3449 11:45-0400Body mass index (BMI) [Ratio] 29.12 kg/m1GyujwmNinfa Childs Other [employer] Other 10-17-2023 11:45-0400Body clkduylkrjl06.5 [degF]Ninfa Childs Other [employer] Other 10-17-2023 11:45-0400Body ktkmzu43.45 kgDuniabritton Childs Other [employer] Other 10-17-2023 11:45-0400Diastolic blood kqemtkqq85 mm[Hg] Ninfa Childs Other [employer] Other 10-17-2023 11:45-0400Systolic blood oaezlkqg049 mm[Hg] Ninfa Childs Other [employer] Other 05-04-2023 15:45-0400Body pzrria451.26 cmKatianatrinybritton Childs Other [facility] Other 05-04-2023 15:45-0400Body mass index (BMI) [Ratio] 28.79 kg/e1Fexknq Braun Other [facility] Other 05-04-2023 15:45-0400Body kixell42.45 kgNinfa Childs Other [facility] Other 05-04-2023 15:45-0400Diastolic blood qpohugdt90 mm[Hg] Ninfa Childs Other [facility] Other 05-04-2023 15:45-2816FbS3% (BldA) [Mass fraction]97 % Ninfa Childs Other [facility] Other 05-04-2023 15:45-0400Systolic blood zeygonxj450 mm[Hg] Ninfa Naz Other [place] [employer] Other 513485-11-5810 10:11-0500Diastolic blood kmzonseu22 mm[Hg] Infante SALAM [facility]12-01-2022 10:11-0500Heart rate65 /minMaher SALAM [facility]12-01-2022 10:11-0500 Respiratory rate26 /minMaher SALAM [facility]12-01-2022 10:11-3329DaI0% (BldA) [Mass fraction]99 %Infante SALAM [facility]12-01-2022 10:11-0500 Systolic blood mm[Hg]Infante SALAM [facility]12-01-2022 10:00-0500 Diastolic blood solbkpry76 mm[Hg]Infante SALAM [facility]12-01-2022 10:00-0500Heart rate71 /minMaher SALAM [facility]12-01-2022 10:00-0500 Respiratory rate17 /minMaher SALAM [facility]12-01-2022 10:00-0500 Systolic blood rcfqfrux253 mm[Hg]Infante SALAM [facility]12-01-2022 09:55-0500 Diastolic blood kefehyrx39 mm[Hg]Infante SALAM [facility]12-01-2022 09:55-0500Heart rate70 /minMaher SALAM [facility]12-01-2022 09:55-0500 Respiratory rate15 /minNaresh HAYNES [facility]12-01-2022 09:55-6759NyS0% (BldA) [Mass fraction]98 %Infanteveronica HAYNES [facility]12-01-2022 09:55-0500 Systolic blood etcetubz697 mm[Hg]Infanteveronica HAYNES [facility]12-01-2022 09:46-0500Body ggjkfeugrvj22.52 [degF][facility] RAMSEY [facility]12-01-2022 09:30-0500 Respiratory rate16 /minNaresh SALVERONIQUE [facility]12-01-2022 08:23-0500Blood Pressure LocationOhher HAYNES [facility]12-01-2022 08:23-0500Body dcrlapkynyi63.16 [degF][facility] RAMSEY [facility]04-15-2022 11:10-0400 Diastolic blood jdorjvkh49 mm[Hg]Kayli Miller [phone]-YrqyrVan [facility] 414563-01-6507 11:10-0400Mean blood judfzifz31 mm[Hg]Kayli Miller [phone]-TxxvsVan [facility] 847272-89-8232 11:10-0400Systolic blood kmpbumqx540 mm[Hg] Kayli Miller [phone]-UyswmVan [facility] 981217-22-1718 10:56-0400Diastolic blood mm[Hg] Kayli Miller [phone]-SsvxyVan [facility] 04-15-2022 10:56-0400Mean blood swshafzq741 mm[Hg]Kayli Miller [phone]-BejewVan [facility] 04-15-2022 10:56-0400Systolic blood gqhapqlm789 mm[Hg] Kayli Miller [phone]-IegziVan [facility] 04-15-2022 10:49-0400Blood Pressure LocationBeth Angela [phone]-TuugsVan [facility] 04-15-2022 10:49-0400Body evrhwqycagm29.42 [degF]Kayli Miller [phone]-MujyaVan [facility] 04-15-2022 10:49-0400Diastolic blood agzmbydd90 mm[Hg] Kayli Miller [phone]-NuiunVan [facility] 04-15-2022 10:49-0400Heart rate69 /minBeth Angela [phone]-ThkauVan [facility]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
[2025-04-30 10:25] LABS: Alanine Aminotransferase 27 U/L (14-59); Albumin Globulin Ratio 1.0; Albumin Level 3.8 g/dL (3.4-5.0); Alkaline Phosphatase 80 U/L (46-116); Anion Gap 12.9; Aspartate Amino Transferase 16 U/L (15-37); Blood Urea Nitrogen 16.0 mg/dL (7.0-18.0); Calcium 9.4 mg/dL (8.5-10.1); Carbon Dioxide 30.3 mmol/L (21.0-32.0); Chloride 102 mmol/L (98-107); Estimated GFR (African America >60 (>=60 mL/min/1.73m^2); Estimated GFR (Non-African Ame >60 (>=60 mL/min/1.73m^2); Globulin 3.8 g/dL; Glucose 100 mg/dL (74-106); Potassium 4.2 mmol/L (3.5-5.1); Sodium 141 mmol/L (136-145); Total Protein 7.6 g/dL (6.4-8.2)
[2025-04-30 10:51] LABS: Cholesterol 283 mg/dL (<=200); HDL Cholesterol 63 mg/dL (40-60); Triglycerides 191 mg/dL (<=150); VLDL CHOLESTEROL 38.2 mg/dL
--- NOTE | 2025-04-30 12:49 | MR_ITS ---
The [address] [address] Patient Name: MIRIAM HUBER MRN: [id number] date: 1955 Sex: F Assigned Patient Location: LAB Current Patient Location: Accession/Order Number: [id number] Exam Date: 04/30/2025 13:00 Report Date: 05/01/2025 16:04 At the request of: TEENA CHILDS MD Procedure: MR head/brain wo/w con MRI BRAIN WITHOUT AND WITH INTRAVENOUS CONTRAST CLINICAL DATA: Retinal artery branch occlusion right eye COMPARISON: None FINDINGS: No restricted diffusion. Ventricles and sulci normal size and configuration for patient's age. No shift midline structure basal cisterns are patent. Mild burden of periventricular subcortical T2 prominence suggestive of chronic small vessel ischemic disease. Evidence of remote lacunar stroke left anterior basal ganglia. No shift midline structure basal cisterns are patent. Intracranial arterial vascular flow was preserved. Following contrast administration, no abnormal postcontrast enhancement identified. MR/MR head/brain wo/w con IMPRESSION: Mild chronic small vessel ischemic disease without evidence acute intracranial process by MRI. Impression dictated by: Louis Ely M.D. 05/01/2025 4:04 PM Dictation Location: [place] [address] Electronically authenticated by: [id number] Y Date: 05/01/2025 16:04
--- NOTE | 2025-04-30 12:50 | MR_ITS ---
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 Vertebral arteries, picas, superior cerebral arteries, basilar artery and aluminum boats assembler are patent.. No abnormal enhancement. MR/MR angio head wo/w con IMPRESSION: Negative for large vessel occlusion or hemodynamically significant stenosis. Negative for aneurysm. Impression dictated by: Louis Ely M.D. 05/01/2025 4:21 PM Dictation Location: [place] [address] Electronically authenticated by: [id number] Y Date: 05/01/2025 16:21
[2025-05-02 10:08] LABS: Estrogens, Total 40 pg/mL (40-244)
== END 2025-04-30 09:36 | disposition home or self-care (01) ==
LOC: LAB 09:36
PROVIDERS: PCP Family Medicine; Visit Provider Family Medicine
DX: H34.231 Retinal artery branch occlusion, right eye (principal); Z78.0 Asymptomatic menopausal state; I25.10 Atherosclerotic heart disease of native coronary artery without angina pectoris
CPT/HCPCS: 36415; 70546; 70553; 80053; 80061; 82565; 82672; 84144; A9575